=== PATIENT | male | born 1950 | race Caucasian/White ===

== ENCOUNTER 2020-06-17 21:10 | Observation (INO) | payer OTHER ==
[~2020-06-17] VITALS: Ht 180.3 cm; Wt 84.4 kg
[2020-06-17 22:39] LABS: Basophils # (auto) 0.1 10 ^3/uL (0-0.2); Basophils % (auto) 0.8 % (0.0-2.0); Eosinophils # (auto) 0.2 10 ^3/uL (0-0.8); Eosinophils % (auto) 2.7 % (0.0-7.0); Hemoglobin 15.9 g/dL (13.5-17.5); Lymphocytes # (auto) 2.6 10 ^3/uL (0.4-5.4); Lymphocytes % (auto) 35.9 % (10.0-50.0); Mean Corpuscular Hemoglobin 29.7 pg (28.0-32.0); Mean Corpuscular Hgb Conc. 33.9 g/dL (32.0-36.0); Mean Corpuscular Volume 87.8 fL (80.0-100.0); Monocytes # (auto) 0.5 10 ^3/uL (0-1.3); Monocytes % (auto) 7.2 % (0.0-12.0); Neutrophils # (auto) 3.9 10 ^3/uL (1.6-8.6); Neutrophils % (auto) 53.4 % (37.0-80.0); Nucleated Red Blood Cells % 0.1 %; Platelet Count (auto) 280 10^3/uL (140-450); Red Blood Cells 5.36 10^6/uL (4.5-5.90); Red Cell Distribution Width 15.7 % (11.8-14.3); White Blood Cell 7.4 10^3/uL (4.4-10.8)
[2020-06-17 22:58] LABS: Anion Gap 5 (5-15); Blood Urea Nitrogen 21 mg/dL (7-18); Calcium 9.1 mg/dL (8.5-10.1); Carbon Dioxide 27 mmol/L (21-32); Chloride 106 mmol/L (98-107); Glucose 91 mg/dL (74-106); Magnesium 2.6 mg/dL (1.6-2.6); Potassium 4.2 mmol/L (3.5-5.1); Sodium 138 mmol/L (136-145)
[2020-06-17 23:00] LABS: INR 0.99 (0.9-1.15)
[2020-06-17 23:17] LABS: Alanine Aminotransferase 34 U/L (16-61); Alkaline Phosphatase 98 U/L (45-117); Aspartate Aminotransferase 35 U/L (15-37); BUN/Creatinine Ratio 19.8; Bilirubin, Total 0.4 mg/dL (0.2-1.0); GFR African American 89 mL/min; GFR Non-African American 73 mL/min; Total Protein 7.9 g/dL (6.4-8.2)
[2020-06-18] MEDS ORDERED: ASPirin 325 MG TAB PO ONE
[2020-06-18] MEDS ORDERED: NITROGLYCERIN 0.4 MG SL TAB SL ONE (04:00)
[2020-06-18] MEDS ORDERED: NITROGLYCERIN 0.4 MG SL TAB SL PRN (04:15)
[2020-06-18] MEDS: SODIUM CHLORIDE 0.9% 1,000 ML IV SCH ×2 (04:15→14:15)
[2020-06-18] MEDS ORDERED: ONDANSETRON HCL 4 MG/2 ML VIAL IV PRN ×2 (04:15→14:30)
[2020-06-18] MEDS ORDERED: MORPHINE SULF INJ 2 MG/ML SYRINGE 1ML IV PRN (04:15)
[2020-06-18 04:55] LABS: Urine Bacteria NONE SEEN /hpf (None Seen); Urine Blood Negative /uL (Negative); Urine Mucus FEW (None Seen); Urine Specific Gravity 1.017 (1.001-1.035); Urine WBC 1 /hpf (0 - 3)
[2020-06-18 05:07] LABS: Calcium 8.3 mg/dL (8.5-10.1); Potassium 3.7 mmol/L (3.5-5.1)
[2020-06-18 07:38] LABS: Basophils # (auto) 0.1 10 ^3/uL (0-0.2); Basophils % (auto) 0.8 % (0.0-2.0); Eosinophils # (auto) 0.2 10 ^3/uL (0-0.8); Eosinophils % (auto) 3.2 % (0.0-7.0); Hematocrit 44.8 % (41.0-53.0); Hemoglobin 14.9 g/dL (13.5-17.5); Lymphocytes # (auto) 2.5 10 ^3/uL (0.4-5.4); Lymphocytes % (auto) 36.4 % (10.0-50.0); Mean Corpuscular Hgb Conc. 33.3 g/dL (32.0-36.0); Mean Corpuscular Volume 87.4 fL (80.0-100.0); Monocytes # (auto) 0.6 10 ^3/uL (0-1.3); Monocytes % (auto) 8.5 % (0.0-12.0); Neutrophils # (auto) 3.5 10 ^3/uL (1.6-8.6); Neutrophils % (auto) 51.1 % (37.0-80.0); Nucleated Red Blood Cells % 0.1 %; Platelet Count (auto) 246 10^3/uL (140-450); Red Blood Cells 5.12 10^6/uL (4.5-5.90); Red Cell Distribution Width 15.9 % (11.8-14.3); White Blood Cell 6.8 10^3/uL (4.4-10.8)
[2020-06-18 09:28] VITALS: BP 155/104
[2020-06-18] MEDS: FAMOTIDINE 20 MG TAB PO SCH ×2 (09:29→21:42)
[2020-06-18] MEDS: METOPROLOL TARTRATE 25 MG TAB PO SCH ×2 (09:30→21:42)
[2020-06-18] MEDS ORDERED: ENOXAPARIN SOD 40 MG/0.4 ML SYRINGE SC SCH (10:00)
[2020-06-18] MEDS: ASPirin 81 mg TAB PO SCH (10:05)
[2020-06-18] MEDS ORDERED: LIDOCAINE 2%HCL (LOCAL ANESTH.) INJ 20ML MDV ONE (12:36)
[2020-06-18] MEDS ORDERED: IODIXANOL 320MG/ML 100ML BTL IV ONE ×2 (12:36→13:32)
[2020-06-18] MEDS ORDERED: ANGIOMAX 250 MG VIAL IV ONE (13:15)
[2020-06-18] MEDS ORDERED: fentaNYL CITRATE 100 MCG/2 ML VL ONE (13:15)
[2020-06-18] MEDS ORDERED: VERAPAMIL 2.5MG/ML INJ 2ML VIAL IV ONE (13:15)
[2020-06-18] MEDS ORDERED: MIDAZOLAM HCL 1MG/1ML-2 ML VIAL ONE (13:15)
[2020-06-18] MEDS ORDERED: SODIUM CHL 0.9% 50 ML ONE (13:16)
[2020-06-18] MEDS ORDERED: diphenhdrAMINE HCL 50 MG/1 ML VL ONE (13:32)
[2020-06-18] MEDS ORDERED: TICAGRELOR 90 MG TAB ONE (13:42)
[2020-06-18] MEDS ORDERED: EPTIFIBATIDE INJ (2MG/ML) 10ML VIAL IV ONE (13:47)
[2020-06-18] MEDS ORDERED: ACETAMINOPHEN 500 MG TAB PO PRN (14:30)
[2020-06-18] MEDS: HYDROcodone-ACET 5/325MG TAB PO PRN ×2 (14:43→21:23)
[2020-06-18] MEDS ORDERED: LABETALOL HCL 5 MG/ML 4ML SYRINGE IV PRN (14:45)
[2020-06-18 17:00] VITALS: BP 117/83
[2020-06-18] MEDS: TICAGRELOR 90 MG TAB PO SCH (21:41)
[2020-06-18] MEDS: SODIUM CHLOR 0.9% PF (SALINE LOCK) 10ML VIAL/SYR IV SCH (21:41)
[2020-06-18] MEDS: ENALAPRIL MALEATE 10 MG TAB PO SCH (21:42)
[2020-06-18] MEDS ORDERED: ATORVASTATIN 20 MG TAB PO SCH (22:00)
[2020-06-18 22:39] VITALS: BP 150/98
[2020-06-19] MEDS ORDERED: HYDROcodone-ACET 10/325MG TAB PO PRN (00:15)
[2020-06-19] MEDS: SODIUM CHLORIDE 0.9% 1,000 ML IV SCH ×2 (00:15→09:20)
[2020-06-19 05:15] VITALS: BP 149/68
[2020-06-19] MEDS: SODIUM CHLOR 0.9% PF (SALINE LOCK) 10ML VIAL/SYR IV SCH (05:18)
[2020-06-19 08:00] VITALS: BP 150/74
[2020-06-19 08:37] VITALS: BP 150/79
[2020-06-19] MEDS: TICAGRELOR 90 MG TAB PO SCH (09:18)
[2020-06-19] MEDS: ASPirin 81 mg TAB PO SCH (09:18)
[2020-06-19] MEDS: FAMOTIDINE 20 MG TAB PO SCH (09:19)
[2020-06-19] MEDS: METOPROLOL TARTRATE 25 MG TAB PO SCH (09:19)
[2020-06-19] MEDS: ENALAPRIL MALEATE 10 MG TAB PO SCH (09:20)
[2020-06-19 10:26] VITALS: BP 150/74
[2020-06-19 12:37] VITALS: BP 156/89
== END 2020-06-19 15:00 | disposition home or self-care (01) ==
LOC: ER 21:13 → TELE 06-18 04:01 → INTOOBSV 06-18 04:01 → TELE-WESTW 06-18 08:48
PROVIDERS: ADMIT Hospitalist; ATTEND Hospitalist
DX: I24.9 Acute ischemic heart disease, unspecified (principal); Z20.822 Contact with and (suspected) exposure to COVID-19; I25.10 Atherosclerotic heart disease of native coronary artery without angina pectoris; I10 Essential (primary) hypertension; K21.9 Gastro-esophageal reflux disease without esophagitis; Z95.5 Presence of coronary angioplasty implant and graft; Z79.899 Other long term (current) drug therapy; Z91.013 Allergy to seafood
CPT/HCPCS: 36415; 71045; 80048; 80053; 80061; 81001; 83735; 83880; 84484; 85025; 85610; 87426; 93005; 93306; 93454; 96360; 96361; 96372; 99285; C1726; C1769; C1874; C1887; C1894; C9600; G0378; J0583; J1327; J1644; J1650; J2250; J3010; J7030; Q9967; 99152; 99153

== ENCOUNTER 2022-04-22 18:13 | Emergency (ER) | payer OTHER ==
[~2022-04-22] VITALS: Ht 180.3 cm; Wt 86.0 kg
[2022-04-22 19:45] VITALS: BP 109/70
[2022-04-22] MEDS ORDERED: HYDR-4902 PO (20:14)
[2022-04-22] MEDS ORDERED: ONDA-144 PO (20:14)
== END 2022-04-22 20:47 | disposition home or self-care (01) ==
LOC: ER 18:13
DX: S82.832A Other fracture of upper and lower end of left fibula, initial encounter for closed fracture (principal); S92.352A Displaced fracture of fifth metatarsal bone, left foot, initial encounter for closed fracture; I10 Essential (primary) hypertension; I25.10 Atherosclerotic heart disease of native coronary artery without angina pectoris; E78.5 Hyperlipidemia, unspecified; Z95.1 Presence of aortocoronary bypass graft; Z79.899 Other long term (current) drug therapy; Z88.2 Allergy status to sulfonamides; Z91.013 Allergy to seafood; X50.1XXA Overexertion from prolonged static or awkward postures, initial encounter; Y93.89 Activity, other specified; Y92.89 Other specified places as the place of occurrence of the external cause; Y99.8 Other external cause status
CPT/HCPCS: 29515; 73610

== ENCOUNTER 2022-08-25 22:40 | Emergency (ER) | payer BC, OTHER ==
[~2022-08-25] VITALS: Ht 180.3 cm; Wt 72.7 kg
[~2022-08-25 22:40] MED LIST: HYDR-4902 PO; ONDA-144 PO
[2022-08-25 23:26] LABS: Basophils # (auto) 0.1 10 ^3/uL (0-0.2); Basophils % (auto) 1.3 % (0.0-2.0); Eosinophils # (auto) 0.3 10 ^3/uL (0-0.8); Eosinophils % (auto) 5.1 % (0.0-7.0); Hematocrit 37.6 % (41.0-53.0); Hemoglobin 12.4 g/dL (13.5-17.5); Lymphocytes # (auto) 1.3 10 ^3/uL (0.4-5.4); Lymphocytes % (auto) 25.3 % (10.0-50.0); Mean Corpuscular Hemoglobin 29.4 pg (28.0-32.0); Mean Corpuscular Hgb Conc. 32.9 g/dL (32.0-36.0); Mean Corpuscular Volume 89.4 fL (80.0-100.0); Monocytes # (auto) 0.5 10 ^3/uL (0-1.3); Monocytes % (auto) 9.8 % (0.0-12.0); Neutrophils % (auto) 58.5 % (37.0-80.0); Red Cell Distribution Width 15.7 % (11.8-14.3); White Blood Cell 5.1 10^3/uL (4.4-10.8)
[2022-08-25 23:44] LABS: Albumin 3.5 g/dL (3.4-5.0); Potassium 3.8 mmol/L (3.5-5.1)
[2022-08-25 23:46] LABS: BUN/Creatinine Ratio 19.4 (10.0-20.0)
[2022-08-25 23:49] LABS: Bilirubin, Total 0.4 mg/dL (0.2-1.0)
[2022-08-26 01:55] LABS: Urine Bacteria NONE SEEN /hpf (None Seen); Urine Blood 3+ /uL (Negative); Urine Mucus FEW (None Seen); Urine Specific Gravity 1.024 (1.001-1.035); Urine WBC 3 /hpf (0 - 3)
[2022-08-26] MEDS ORDERED: ONDANSETRON HCL 4 MG/2 ML VIAL IV PRN (05:30)
[2022-08-26] MEDS: SODIUM CHLORIDE 0.9% 2,000 ML IV ONE ×2 (05:45→06:40)
[2022-08-26] MEDS ORDERED: ALPRAZolam 0.25 MG TAB PO ONE (06:15)
[2022-08-26] MEDS ORDERED: CLOPIDOGREL BISULFATE 75 MG TAB PO SCH (10:00)
[2022-08-26] MEDS ORDERED: ASPirin-EC 81 mg tab PO SCH (10:00)
[2022-08-26 12:00] VITALS: BP 126/73
== END 2022-08-26 12:06 | disposition home or self-care (01) ==
LOC: EDBD 22:40 → ER 22:42
DX: R55 Syncope and collapse (principal); G91.0 Communicating hydrocephalus; I10 Essential (primary) hypertension; E78.5 Hyperlipidemia, unspecified; Z88.2 Allergy status to sulfonamides; Z91.013 Allergy to seafood; Z86.73 Personal history of transient ischemic attack (TIA), and cerebral infarction without residual deficits
CPT/HCPCS: 36415; 70450; 71045; 71250; 72125; 74176; 80053; 81001; 84484; 85025; 93005; 96360; 99291; J7030

== ENCOUNTER 2022-12-06 21:45 | Emergency (ER) | payer BC ==
[~2022-12-06] VITALS: Ht 180.3 cm; Wt 75.0 kg
[2022-12-06 23:11] VITALS: BP 143/86; PULSE 78; RESP 15; TEMP 98; O2SAT 98
[2022-12-06] MEDS ORDERED: LACTATED RINGER'S 1,000 ML IV ONE (23:30)
[2022-12-07 00:08] LABS: Basophils # (auto) 0.1 10 ^3/uL (0-0.2); Basophils % (auto) 0.8 % (0.0-2.0); Eosinophils # (auto) 0.3 10 ^3/uL (0-0.8); Eosinophils % (auto) 4.1 % (0.0-7.0); Hematocrit 38.7 % (41.0-53.0); Hemoglobin 12.9 g/dL (13.5-17.5); Lymphocytes # (auto) 1.2 10 ^3/uL (0.4-5.4); Lymphocytes % (auto) 17.7 % (10.0-50.0); Mean Corpuscular Hemoglobin 29.8 pg (28.0-32.0); Mean Corpuscular Hgb Conc. 33.2 g/dL (32.0-36.0); Mean Corpuscular Volume 89.6 fL (80.0-100.0); Monocytes # (auto) 0.5 10 ^3/uL (0-1.3); Monocytes % (auto) 7.1 % (0.0-12.0); Neutrophils # (auto) 4.7 10 ^3/uL (1.6-8.6); Neutrophils % (auto) 70.3 % (37.0-80.0); Red Blood Cells 4.32 10^6/uL (4.5-5.90); Red Cell Distribution Width 14.5 % (11.8-14.3); White Blood Cell 6.7 10^3/uL (4.4-10.8)
[2022-12-07 00:20] LABS: Alanine Aminotransferase 26 U/L (7-40); Albumin 3.9 g/dL (3.2-4.8); Alkaline Phosphatase 119 U/L (46-116); Anion Gap 5 (5-15); Aspartate Aminotransferase 32 U/L (13-40); BUN/Creatinine Ratio 21.4 (10.0-20.0); Blood Alcohol < 3.0 mg/dL (<10); Blood Urea Nitrogen 24 mg/dL (9-23); Calcium 8.9 mg/dL (8.7-10.4); Carbon Dioxide 26 mmol/L (20-30); Chloride 105 mmol/L (98-107); Glucose 92 mg/dL (74-106); Lipase 42 U/L (12-53); Magnesium 2.2 mg/dL (1.6-2.6); Potassium 4.1 mmol/L (3.5-5.1); Sodium 136 mmol/L (136-145)
[2022-12-07 00:21] LABS: Bilirubin, Total 0.4 mg/dL (0.2-1.0); Total Protein 6.6 g/dL (5.7-8.2)
[2022-12-07 00:23] LABS: INR 1.05 (0.9-1.15); Partial Thromboplastin Time 27.5 SEC (24.5-34.5)
[2022-12-07 00:40] LABS: CRP High Sensitivity 0.08 mg/dL (<1.0)
[2022-12-07 00:59] LABS: Erythrocyte Sedimentation Rate 5 mm/hr (0-20)
== END 2022-12-07 00:57 | disposition left against medical advice (07) ==
LOC: EDBD 21:45 → EDUNIT# 21:45 → ER 21:48
DX: R56.9 Unspecified convulsions (principal); E86.0 Dehydration; E78.5 Hyperlipidemia, unspecified; I10 Essential (primary) hypertension; Z88.2 Allergy status to sulfonamides; Z91.013 Allergy to seafood; Z79.899 Other long term (current) drug therapy; Z79.01 Long term (current) use of anticoagulants; Z74.09 Other reduced mobility
CPT/HCPCS: 36415; 70450; 71045; 80053; 80320; 82010; 82140; 83605; 83690; 83735; 83880; 83930; 84443; 84484; 85025; 85610; 85652; 85730; 86141; 93005; 99285; J7120

== ENCOUNTER 2023-12-31 23:47 | Inpatient (IN) | payer BC ==
[~2023-12-31] VITALS: Ht 180.3 cm; Wt 82.1 kg
[2024-01-01] VITALS (20 sets, daily range): BP systolic 100–125; BP diastolic 52–77; PULSE 67–90; RESP 12–18; TEMP 97.3–98.7; O2SAT 88–100
--- NOTE | 2024-01-01 00:24 | ED.PDOC ---
HPI Comments 73-year-old male who came to ER via EMS for chest pains. Patient does have history of hypertension, GERD, coronary artery disease, status post cardiac stents. States for the past 2 days she has been experiencing left-sided chest pains, burning, entire left arm, associated with shortness of breath. States chest pain as 2/10 intensity. Noted worsening of chest pains today prompted patient to come to the ER. Patient states his pains is similar to GERD. Chief Complaint: Chest Pain Time Seen by MD: 00:23 Reviewed Notes: Nurses Notes Allergies: Coded Allergies: Fish Allergy (Verified Allergy, Mild, 06/17/20) Sulfa Antibiotics (Verified Allergy, Unknown, 06/18/20) Home Meds Active Scripts Ondansetron (Zofran) 4 Mg Tab, 1 TAB PO Q6HR PRN, #10 TAB 0 Refills Prov:AUDREY LEE 04/22/22 Hydrocodone-Acetaminophen (Hydrocodone Bitartrate/AC 5-325 mg) 1 Tab Tab, 1 TAB PO Q4HPRN PRN, #10 TAB 0 Refills Prov:AUDREY LEE 04/22/22 Information Source: Patient Mode of Arrival: EMS Severity: Moderate Timing: Days Duration: Intermittent Prehospital treatment: None Location: Chest (L) Radiation: Arm (L) Quality: Sharp, Burning Onset: With Light Exertion Cardiac Risk Factors: HTN, Other (GERD) PE Risk Factors: None History of: Similar pain in past Modifying Factors: Nothing Associated Signs and Symptoms: SOB Past Medical History PAST MEDICAL HISTORY: CAD, GERD, High Lipids, HTN Surgical History: PTCA Family History Family History: Reviewed,noncontributory to illness Social History Smoker: Non-Smoker Alcohol: Denies ETOH Use Drugs: Denies Drug Use Lives In: Home Constitutional: denies: chills, diaphoresis, fatigue, fever, malaise, sweats, weakness, others EENTM: denies: blurred vision, double vision, ear bleeding, ear discharge, ear drainage, ear pain, ear ringing, eye pain, eye redness, hearing loss, mouth pain, mouth swelling, nasal discharge, nose bleeding, nose congestion, nose pain, photophobia, tearing, throat pain, throat swelling, voice changes, others Respiratory: reports: SOB at rest, shortness of breath; denies: cough, hemoptysis, orthopnea, SOB with excertion, stridor, wheezing, others Cardiovascular: reports: chest pain, left arm pain; denies: dizzy spells, diaphoresis, Dyspnea on exertion, edema, irregular heart beat, lightheadedness, palpitations, PND, syncope, others Gastrointestinal: reports: abdominal pain; denies: abdomen distended, blood streaked bowels, constipated, diarrhea, dysphagia, difficulty swallowing, hematemesis, melena, nausea, poor appetite, poor fluid intake, rectal bleeding, rectal pain, vomiting, others Genitourinary: denies: burning, dysuria, flank pain, frequency, hematuria, incontinence, penile discharge, penile sore, pain, testicle pain, testicle swelling, urgency, others Neurological: denies: dizziness, fainting, headache, left sided numbness, left sided weakness, numbness, paresthesia, pre-existing deficit, right sided numbness, right sided weakness, seizure, speech problems, tingling, tremors, weakness, others Musculoskeletal: denies: back pain, gout, joint pain, joint swelling, muscle pain, muscle stiffness, neck pain, others Integumetry: denies: bruises, change in color, change in hair/nails, dryness, laceration, lesions, lumps, rash, wounds, others Allergic/Immunocompromised: denies: Difficulty Healing, Frequent Infections, Hives, Itching, others Hematologic/Lymphatic: denies: anemia, blood clots, easy bleeding, easy bruising, swollen glands, others Endocrine: denies: excessive hunger, excessive sweating, excessive thirst, excessive urination, flushing, intolerance to cold, intolerance to heat, unexplained weight gain, unexplained weight loss, others Psychiatric: denies: anxiety, bipolar disorder, depression, hopeless, panic disorder, schizophrenia, sleepless, suicidal, others Physical Exam General Appearance: No Apparent Distress, Normal HEENT: Normal ENT Inspection, Pharynx Normal, TMs Normal Neck: Full Range of Motion, Non-Tender, Normal, Normal Inspection Respiratory: Chest Non-Tender, Lungs Clear, No Accessory Muscle Use, No Respiratory Distress, Normal Breath Sounds Cardiovascular: No Edema, No JVD, No Murmur, No Gallop, Normal Peripheral Pulses, Regular Rate/Rhythm Breast Exam: Deferred Gastrointestinal: No Organomegaly, Non Tender, No Pulsatile Mass, Normal Bowel Sounds, Soft Genitalia: Deferred Pelvic: Deferred Rectal: Deferred Extremities: No calf tenderness, Normal capillary refill, Normal inspection, Normal range of motion, Non-tender, No pedal edema Musculoskeletal : Apperance: Normal Neurologic: Alert, cloak room attendant II-XII nml as Tested, No Motor Deficits, Normal Affect, Normal Mood, No Sensory Deficits Cerebellar Function: Normal Reflexes: Normal Skin: Dry, Normal Color, Warm Lymphatic: No Adenopathy Was a procedure done? Was a procedure done?: No CP Differential Dx Differential Diagnosis: Angina, Anxiety / Panic Attack, Hyperventilation Differential Diagnosis: Angina, Chest Wall Pain, Costochondritis, Esophageal reflux/spasm, Gastritis, Myocardial Infarction, Pneumonia X-Ray, Labs, Meds, VS Vital Signs Date Time Temp Pulse Resp B/P (MAP) Pulse Ox O2 Delivery O2 Flow Rate FiO2 01/01/24 01:15 98.9 90 17 88/69 (75) 100 98.9 01/01/24 00:56 93 01/01/24 00:39 98.6 88 16 126/81 (96) 100 12/31/23 23:54 88 Lab Test 01/01/24 01:33 01/01/24 00:01 Range/Units Troponin I High Sensitivity 2131 *H 2121 *H </=54 ng/L White Blood Count 9.7 4.4-10.8 10^3/uL Red Blood Count 1.48 L 4.5-5.90 10^6/uL Hemoglobin 4.6 *L 13.5-17.5 g/dL Hematocrit 13.8 L 41.0-53.0 % Mean Corpuscular Volume 93.0 80.0-100.0 fL Mean Corpuscular Hemoglobin 31.3 28.0-32.0 pg Mean Corpuscular Hemoglobin Concent 33.7 32.0-36.0 g/dL Red Cell Distribution Width 17.7 H 11.8-14.3 % Platelet Count 321 140-450 10^3/uL Mean Platelet Volume 7.1 6.9-10.8 fL Neutrophils (%) (Auto) 71.3 37.0-80.0 % Lymphocytes (%) (Auto) 18.1 10.0-50.0 % Monocytes (%) (Auto) 9.8 0.0-12.0 % Eosinophils (%) (Auto) 0.5 0.0-7.0 % Basophils (%) (Auto) 0.3 0.0-2.0 % Neutrophils # (Auto) 6.9 1.6-8.6 10 ^3/uL Lymphocytes # (Auto) 1.8 0.4-5.4 10 ^3/uL Monocytes # (Auto) 1.0 0-1.3 10 ^3/uL Eosinophils # (Auto) 0 0-0.8 10 ^3/uL Basophils # (Auto) 0 0-0.2 10 ^3/uL Nucleated Red Blood Cells 0.5 % Platelet Estimate [place] Large Platelets Few Ovalocytes Few Stomatocytes Few Sodium Level 141 136-145 mmol/L Potassium Level 3.3 L 3.5-5.1 mmol/L Chloride Level 111 H 98-107 mmol/L Carbon Dioxide Level 20 20-31 mmol/L Anion Gap 10 5-15 Blood Urea Nitrogen 64 H 9-23 mg/dL Creatinine 2.76 H 0.700-1.30 mg/dL Glomerular Filtration Rate Calc 23 >90 mL/min BUN/Creatinine Ratio 23.2 H 10.0-20.0 Serum Glucose 107 H 74-106 mg/dL Calcium Level 8.3 L 8.7-10.4 mg/dL Time of 1ST Reevaluation: 00:19 Reevaluation 1ST: Unchanged Patient Education/Counseling: Diagnosis, Treatment Family Education/Counseling: No Family Present Departure 1 Departure Time of Disposition: 02:32 (Patient presented with chest pain that was concerning for possible STEMI, ACS, PE, Pneumonia, Muscle Strain, COPD, Di ssection. Data: 1. I ordered and reviewed the result of at least 3 labs including a CBC, BMP, and Troponin. 2. I independently interpreted the following tests: EKG which shows sinus arrhythmia and Chest X-ray which shows benign chest.Risk:This patient has a high risk of morbidity due to further diagnostic testing or treatment and may suffer from an acute cardiac or respiratory diso rder. Workup reveals NSTEMI and symptomatic anemia possible ulceration and patient should be admitted for further workup and possible expert consultation. ) Impression: Primary Impression: Symptomatic anemia Additional Impressions: Acute chest pain NSTEMI (non-ST elevated myocardial infarction) Disposition: 09 ADMITTED INPATIENT Admit to: [facility] Condition: Guarded Critical Care Note Critical Care Time?: Yes (35 min-critical care time only) Critical care comment: Acute chest pain Authorized and Performed by: Shannon Clemons MD Total critical care time: Approximately 42 minutes Due to a high probability of clinically significant, life threatening deterioration, the patient required my highest level of preparedness to intervene emergently and I personally spent this critical care time directly and personally managing the patient. This critical care time included obtaining a history; examining the patient; pulse oximetry; ordering and review of studies; arranging urgent treatment with development of a management plan; evaluation of patient's response to treatment; frequent reassessment; and, discussions with other providers. This critical care time was performed to assess and manage the high probability of imminent, life-threatening deterioration that could result in multi-organ failure. It was exclusive of separately billable procedures and treating other patients and teaching time. Please see my other sections and the rest of the note for further information on patient assessment and treatment. Stability Stability form required: No Heart Score Heart Score: Heart Score Response (Comments) Value History Slightly Suspicious 0 EKG Normal 0 Age >65 2 Risk Factors 1 or 2 risk factors 1 Troponin Normal limit 0 Total 3 I personally scribed for SHANNON CLEMONS MD ([email or web address]) on 01/01/24 at 00:24. Electronically submitted by Kareem Pendleton ([email or web address]). SHANNON CLEMONS MD Jan 01, 2024 00:24
[2024-01-01 00:37] LABS: Chloride 111 mmol/L (98-107); Potassium 3.3 mmol/L (3.5-5.1); Sodium 141 mmol/L (136-145)
[2024-01-01 00:38] LABS: Anion Gap 10 (5-15); Calcium 8.3 mg/dL (8.7-10.4); Carbon Dioxide 20 mmol/L (20-31)
[2024-01-01 00:39] LABS: Basophils # (auto) 0 10 ^3/uL (0-0.2); Eosinophils # (auto) 0 10 ^3/uL (0-0.8); Eosinophils % (auto) 0.5 % (0.0-7.0); Lymphocytes # (auto) 1.8 10 ^3/uL (0.4-5.4); Lymphocytes % (auto) 18.1 % (10.0-50.0)
[2024-01-01 00:41] LABS: Basophils % (auto) 0.3 % (0.0-2.0); Hematocrit 13.8 % (41.0-53.0); Mean Corpuscular Hemoglobin 31.3 pg (28.0-32.0); Mean Corpuscular Hgb Conc. 33.7 g/dL (32.0-36.0); Monocytes % (auto) 9.8 % (0.0-12.0); Neutrophils # (auto) 6.9 10 ^3/uL (1.6-8.6); Neutrophils % (auto) 71.3 % (37.0-80.0); Nucleated Red Blood Cells % 0.5 %; Platelet Count (auto) 321 10^3/uL (140-450); Red Blood Cells 1.48 10^6/uL (4.5-5.90); Red Cell Distribution Width 17.7 % (11.8-14.3); White Blood Cell 9.7 10^3/uL (4.4-10.8)
[2024-01-01 00:43] LABS: BUN/Creatinine Ratio 23.2 (10.0-20.0); Blood Urea Nitrogen 64 mg/dL (9-23); Glucose 107 mg/dL (74-106)
[2024-01-01] MEDS: PANTOPRAZOLE 40 MG/10 ML VIAL INJ IV ONE (01:00)
--- NOTE | 2024-01-01 01:18 | ECG ---
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
[2024-01-01 01:19] LABS: Large Platelets FEW; Ovalocytes FEW; Platelet Estimate Adequa; Stomatocytes Few
[2024-01-01 01:44] LABS: Hemoglobin 4.6 g/dL (13.5-17.5)
--- NOTE | 2024-01-01 02:13 | DVH ---
Examination: CXR2 Clinical Indication: chest pain Comparison: None. Technique: (PA AND LATERAL VIEW) Findings: Both the lung mckoy appear clear. Both the costo-phrenic and cardio-phrenic angles are normal. Trachea and mediastinum are in the midline. Cardiac size is within normal limits. There is no evidence of pleural effusion or pneumothorax. Bony thoracic cage appears normal. Post-operative changes are noted in the cervical spine. Impression: No abnormality is detected on this study. Electronically Signed 01/01/2024 02:05 Rick Cantu
[2024-01-01 04:25] LABS: Urine Bacteria None Seen /hpf (None Seen)
[2024-01-01] MEDS ORDERED: NITROGLYCERIN 0.4 MG SL TAB SL PRN (04:30)
[2024-01-01] MEDS ORDERED: ONDANSETRON HCL 4 MG/2 ML VIAL IV PRN (04:30)
[2024-01-01] MEDS: SODIUM CHLORIDE 0.9% 1,000 ML IV SCH (04:30)
[2024-01-01] MEDS ORDERED: MORPHINE SULFATE INJ 2 MG/ml SYRG IV PRN (04:30)
[2024-01-01 04:33] LABS: Urine Blood Negative /uL (Negative); Urine Clarity Clear (Clear); Urine Color Light-Yellow (Yellow); Urine Protein, UAD Negative (Negative); Urine Specific Gravity 1.012 (1.001-1.035); Urine Urobilinogen Normal (Negative); Urine WBC 1 /hpf (0 - 3)
[2024-01-01 04:43] LABS: INR 1.03 (0.9-1.15); Prothrombin Time 10.9 sec (9.3-11.8)
[2024-01-01] MEDS: POTASSIUM CHL 20MEQ/100ML 100 ML IV SCH ×2 (04:45→17:30)
[2024-01-01 05:04] LABS: Basophils # (auto) 0.1 10 ^3/uL (0-0.2); Basophils % (auto) 0.5 % (0.0-2.0); Eosinophils # (auto) 0.1 10 ^3/uL (0-0.8); Eosinophils % (auto) 0.4 % (0.0-7.0); Hematocrit 14.4 % (41.0-53.0); Lymphocytes # (auto) 4.4 10 ^3/uL (0.4-5.4); Lymphocytes % (auto) 31.6 % (10.0-50.0); Mean Corpuscular Hemoglobin 29.9 pg (28.0-32.0); Mean Corpuscular Volume 99.8 fL (80.0-100.0); Monocytes % (auto) 7.2 % (0.0-12.0); Neutrophils # (auto) 8.4 10 ^3/uL (1.6-8.6); Neutrophils % (auto) 60.3 % (37.0-80.0); Nucleated Red Blood Cells % 0.4 %; Platelet Count (auto) 334 10^3/uL (140-450); Red Blood Cells 1.44 10^6/uL (4.5-5.90); Red Cell Distribution Width 18.7 % (11.8-14.3); White Blood Cell 13.9 10^3/uL (4.4-10.8)
[2024-01-01 05:10] LABS: Hemoglobin 4.3 g/dL (13.5-17.5)
[2024-01-01 05:17] LABS: % Iron Saturation 6.7 % (20-55)
[2024-01-01 05:18] LABS: Albumin 3.6 g/dL (3.2-4.8); Bilirubin, Total 0.3 mg/dL (0.2-1.0); Total Protein 5.4 g/dL (5.7-8.2)
[2024-01-01 05:34] LABS: Bilirubin, Direct 0.1 mg/dL (<0.3)
[2024-01-01 05:43] LABS: Large Platelets FEW; Platelet Estimate Adequa
--- NOTE | 2024-01-01 05:46 | DVHHP2 ---
Admitting Diagnosis: cp History of Present Illness HPI 73 M who comes to ER for chest pains over the last few days. He states he has a hx of CAD with 4 cardiac stents in the past and he takes brilinta at home. On arrival to ER his hgb was noted to be 4.6 and troponin was >2k. He was ordered PRBC transfusion and started on protonix gtt for GI bleed. He will be admitted to tele floor with GI and cardiology consults. Currently he denies and CP, SOB, n/v, or abd pain. Home Meds Active Scripts Ondansetron (Zofran) 4 Mg Tab, 1 TAB PO Q6HR PRN, #10 TAB 0 Refills Prov:ADUREY LEE 04/22/22 Hydrocodone-Acetaminophen (Hydrocodone Bitartrate/AC 5-325 mg) 1 Tab Tab, 1 TAB PO Q4HPRN PRN, #10 TAB 0 Refills Prov:AUDREY LEE 04/22/22 Past Medical History Cardiac: CAD, HTN Pulmonary: No pertinent Hx Central Nervous System: No pertinent Hx GI: GERD Hemotology/Oncology: No pertinent Hx Hepatobiliary: No pertinent Hx Psychiatric: No pertinent Hx Musculoskeletal: No pertinent Hx Infectious Disease: No peritnent Hx Renal/: No pertinent Hx Patient Family History: Alcoholism FH: CHF (congestive heart failure) G8 FATHER FH: ovarian cancer G8 MOTHER FH: pancreatic cancer G8 BROTHER Review of Systems Cardiovascular: Chest Pain Gastrointestinal: Abdominal Pain H&P Exam Vital Signs Vital Signs Date Time Temp Pulse Resp B/P (MAP) Pulse Ox O2 Delivery O2 Flow Rate FiO2 01/01/24 05:26 98.7 81 16 119/52 (74) 100 98.7 01/01/24 02:50 Nasal Cannula* 2 28 General Appeara: Well developed Neck Exam: Normal inspection Pulmonary/Respiratory: Normal inspection Cardiovascular/Chest: Regular rate Labs/Xrays Labs Test 01/01/24 04:39 01/01/24 04:34 01/01/24 02:48 01/01/24 02:47 Range/Units White Blood Count 13.9 #H 4.4-10.8 10^3/uL Red Blood Count 1.44 L 4.5-5.90 10^6/uL Hemoglobin 4.3 *L 13.5-17.5 g/dL Hematocrit 14.4 L 41.0-53.0 % Mean Corpuscular Volume 99.8 # 80.0-100.0 fL Mean Corpuscular Hemoglobin 29.9 28.0-32.0 pg Mean Corpuscular Hemoglobin Concent 30.0 L 32.0-36.0 g/dL Red Cell Distribution Width 18.7 H 11.8-14.3 % Platelet Count 334 140-450 10^3/uL Mean Platelet Volume 7.4 6.9-10.8 fL Neutrophils (%) (Auto) 60.3 37.0-80.0 % Lymphocytes (%) (Auto) 31.6 10.0-50.0 % Monocytes (%) (Auto) 7.2 0.0-12.0 % Eosinophils (%) (Auto) 0.4 0.0-7.0 % Basophils (%) (Auto) 0.5 0.0-2.0 % Neutrophils # (Auto) 8.4 1.6-8.6 10 ^3/uL Lymphocytes # (Auto) 4.4 0.4-5.4 10 ^3/uL Monocytes # (Auto) 1.0 0-1.3 10 ^3/uL Eosinophils # (Auto) 0.1 0-0.8 10 ^3/uL Basophils # (Auto) 0.1 0-0.2 10 ^3/uL Nucleated Red Blood Cells 0.4 % Reticulocyte Count (auto) 13.27 H 0.5-1.5 % Iron Level 21 L 65-175 ug/dL Total Iron Binding Capacity 315 250-425 ug/dL Percent Iron Saturation 6.7 L 20-55 % Total Bilirubin 0.3 0.2-1.0 mg/dL Aspartate Amino Transferase (AST) 29 13-40 U/L Alanine Aminotransferase (ALT) 18 7-40 U/L Alkaline Phosphatase 79 46-116 U/L Lactate Dehydrogenase 224 120-246 U/L Total Protein 5.4 L 5.7-8.2 g/dL Albumin 3.6 3.2-4.8 g/dL Lactic Acid Level 8.0 *H 0.4-2.0 mmol/L Urine Color Light-yellow Yellow Urine Clarity Clear Clear Urine pH 5.0 5.0-9.0 Urine Specific [place] 1.012 1.001-1.035 Urine Protein Negative Negative Urine Ketones Negative Negative Urine Blood Negative Negative /uL Urine Nitrite Negative Negative Urine Bilirubin Negative Negative Urine Urobilinogen Normal Negative mg/dL Urine Leukocyte Esterase Negative Negative /uL Urine RBC 1 0 - 3 /hpf Urine WBC 1 0 - 3 /hpf Urine Squamous Epithelial Cells None seen <5 /hpf Urine Bacteria None seen None Seen /hpf Urine Glucose Normal Normal mg/dL Prothrombin Time 10.9 9.3-11.8 sec Prothrombin Time INR 1.03 0.9-1.15 Troponin I High Sensitivity 2151 *H </=54 ng/L Test 01/01/24 00:01 Range/Units Large Platelets Few Ovalocytes Few Stomatocytes Few Sodium Level 141 136-145 mmol/L Potassium Level 3.3 L 3.5-5.1 mmol/L Chloride Level 111 H 98-107 mmol/L Carbon Dioxide Level 20 20-31 mmol/L Anion Gap 10 5-15 Blood Urea Nitrogen 64 H 9-23 mg/dL Creatinine 2.76 H 0.700-1.30 mg/dL Glomerular Filtration Rate Calc 23 >90 mL/min BUN/Creatinine Ratio 23.2 H 10.0-20.0 Serum Glucose 107 H 74-106 mg/dL Calcium Level 8.3 L 8.7-10.4 mg/dL Assessment/Plan Primary Diagnosis 1) GI bleed 2) Acute blood loss anemia 3) JEOVANNY 4) Elevated troponin, likely demand in the setting of anemia 5) CAD s/p PCI x4 in the past 6) HTN 7) Lactic acidemia plab; admit to tele, NPO, protonix gtt, IVF hydration, hold anticoagulants, transfuse to keep hgb >7, hemolytic work up ordered, GI consult to see, echo and cardiology to evaluate for elevated trops, SCDs, trend Hgb, daily labs, guarded Plan discussed with: Other (n) KAYLA FORTE MD Jan 01, 2024 05:46
[2024-01-01] MEDS: PANTOPRAZOLE 40mg/50ML NS AE 50 ML IV ONE (07:00)
--- NOTE | 2024-01-01 08:45 | ECG ---
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
[2024-01-01] MEDS: PANTOPRAZOLE 40mg/50ML NS AE 50 ML IV SCH (14:07)
--- NOTE | 2024-01-01 16:39 | DVHINCON2 ---
Date of service: Jan 01, [address] Garrett Reason for Consultation Severe anemia History of Present Illness 73 M who comes to ER for chest pains over the last few days. He states he has a hx of CAD with 4 cardiac stents in the past recorded in our hospital [place] [address] David Luz and he takes brilinta at home. On arrival to ER his hgb was noted to be 4.6 and troponin was >2k. He was ordered PRBC transfusion and started on protonix gtt for GI bleed. He was admitted to tele floor with GI and cardiology consults. Currently he denies and CP, SOB, n/v, or abd pain. Patient denies any nausea vomiting no hematemesis no bright red blood per rectum or melena. His last colonoscopy and endoscopy were about eight years ago which he reports as being negative. Patient has received 2 units PRBC and 3rd unit is transfusing. Past Medical History CAD, GERD, High Lipids, HTN Past Surgical History PTCA Family History: Alcoholism FH: CHF (congestive heart failure) G8 FATHER FH: ovarian cancer G8 MOTHER FH: pancreatic cancer G8 BROTHER Allergies: Coded Allergies: Fish Allergy (Verified Allergy, Mild, 06/17/20) Sulfa Antibiotics (Verified Allergy, Unknown, 06/18/20) Home Meds No Active Prescriptions or Reported Meds Current Medications Current Medications Medications (Trade) Dose Ordered Sig/[place] Route PRN Reason Start Time Stop Time Status Last Admin Ondansetron HCl (Zofran) 4 mg Q4HPRN PRN IV NAUSEA / VOMITING 01/01/24 04:30 Morphine Sulfate 2 mg Q3HPRN PRN IV SEVERE PAIN (7-10 PAIN SCALE) 01/01/24 04:30 Sodium Chloride 1,000 ml @ 100 mls/hr Q10H IV 01/01/24 04:30 01/01/24 14:47 Nitroglycerin (Ntrostat Sublingual) 0.4 mg Q5MINP PRN SL FOR CHEST PAIN 01/01/24 04:30 Potassium Chloride 100 ml @ 50 mls/hr Q2H IV 01/01/24 04:45 01/01/24 08:44 DC Pantoprazole Sodium 50 ml @ 10 mls/hr Q5H IV 01/01/24 09:15 01/01/24 14:07 Vital Signs Vital Signs Date Time Temp Pulse Resp B/P (MAP) Pulse Ox O2 Delivery O2 Flow Rate FiO2 01/01/24 14:55 97.9 78 18 123/71 97.9 01/01/24 11:56 92 01/01/24 09:30 Nasal Cannula* 3 32 Physical Exam General Appeara: Well developed, thin male no acute distress Neck Exam: Normal inspection, mild pallor Pulmonary/Respiratory: Normal inspection Cardiovascular/Chest: Regular rate Abdomen is soft nontender nondistended Extremities show no clubbing cyanosis or edema Neuro he is alert arrange x3 with no focal deficit Labs/Diagnostic Data Labs Test 01/01/24 06:39 01/01/24 04:39 01/01/24 02:48 01/01/24 02:47 Range/Units Lactic Acid Level 1.5 0.4-2.0 mmol/L White Blood Count 13.9 #H 4.4-10.8 10^3/uL Red Blood Count 1.44 L 4.5-5.90 10^6/uL Hemoglobin 4.3 *L 13.5-17.5 g/dL Hematocrit 14.4 L 41.0-53.0 % Mean Corpuscular Volume 99.8 # 80.0-100.0 fL Mean Corpuscular Hemoglobin 29.9 28.0-32.0 pg Mean Corpuscular Hemoglobin Concent 30.0 L 32.0-36.0 g/dL Red Cell Distribution Width 18.7 H 11.8-14.3 % Platelet Count 334 140-450 10^3/uL Mean Platelet Volume 7.4 6.9-10.8 fL Neutrophils (%) (Auto) 60.3 37.0-80.0 % Lymphocytes (%) (Auto) 31.6 10.0-50.0 % Monocytes (%) (Auto) 7.2 0.0-12.0 % Eosinophils (%) (Auto) 0.4 0.0-7.0 % Basophils (%) (Auto) 0.5 0.0-2.0 % Neutrophils # (Auto) 8.4 1.6-8.6 10 ^3/uL Lymphocytes # (Auto) 4.4 0.4-5.4 10 ^3/uL Monocytes # (Auto) 1.0 0-1.3 10 ^3/uL Eosinophils # (Auto) 0.1 0-0.8 10 ^3/uL Basophils # (Auto) 0.1 0-0.2 10 ^3/uL Nucleated Red Blood Cells 0.4 % Platelet Estimate [place] Large Platelets Few Jyoti Cells Few Reticulocyte Count (auto) 13.27 H 0.5-1.5 % Iron Level 21 L 65-175 ug/dL Total Iron Binding Capacity 315 250-425 ug/dL Percent Iron Saturation 6.7 L 20-55 % Total Bilirubin 0.3 0.2-1.0 mg/dL Direct Bilirubin 0.1 <0.3 mg/dL Aspartate Amino Transferase (AST) 29 13-40 U/L Alanine Aminotransferase (ALT) 18 7-40 U/L Alkaline Phosphatase 79 46-116 U/L Lactate Dehydrogenase 224 120-246 U/L Total Protein 5.4 L 5.7-8.2 g/dL Albumin 3.6 3.2-4.8 g/dL Urine Color Light-yellow Yellow Urine Clarity Clear Clear Urine pH 5.0 5.0-9.0 Urine Specific [place] 1.012 1.001-1.035 Urine Protein Negative Negative Urine Ketones Negative Negative Urine Blood Negative Negative /uL Urine Nitrite Negative Negative Urine Bilirubin Negative Negative Urine Urobilinogen Normal Negative mg/dL Urine Leukocyte Esterase Negative Negative /uL Urine RBC 1 0 - 3 /hpf Urine WBC 1 0 - 3 /hpf Urine Squamous Epithelial Cells None seen <5 /hpf Urine Bacteria None seen None Seen /hpf Urine Glucose Normal Normal mg/dL Prothrombin Time 10.9 9.3-11.8 sec Prothrombin Time INR 1.03 0.9-1.15 Troponin I High Sensitivity 2151 *H </=54 ng/L Test 01/01/24 00:01 Range/Units Ovalocytes Few Stomatocytes Few Sodium Level 141 136-145 mmol/L Potassium Level 3.3 L 3.5-5.1 mmol/L Chloride Level 111 H 98-107 mmol/L Carbon Dioxide Level 20 20-31 mmol/L Anion Gap 10 5-15 Blood Urea Nitrogen 64 H 9-23 mg/dL Creatinine 2.76 H 0.700-1.30 mg/dL Glomerular Filtration Rate Calc 23 >90 mL/min BUN/Creatinine Ratio 23.2 H 10.0-20.0 Serum Glucose 107 H 74-106 mg/dL Calcium Level 8.3 L 8.7-10.4 mg/dL Problems(with codes): (1) Symptomatic anemia (2) NSTEMI (non-ST elevated myocardial infarction) (3) Acute chest pain Plan/Recommendation Plan Patient had moderate elevation in his troponins Lactic acidosis has improved Transfuse a total of 4 units PRBC if required Monitor H&H every 12 hours Hold Brilinta and blood thinners Cardiology consult CT scan abdomen pelvis Possible elective EGD and colonoscopy once cardiac stabilized possibly as an outpatient Plan discussed with: Patient MATTEO SEWELL MD Jan 01, 2024 16:39
[2024-01-01 19:12] LABS: Basophils # (auto) 0 10 ^3/uL (0-0.2); Eosinophils # (auto) 0.1 10 ^3/uL (0-0.8); Eosinophils % (auto) 0.9 % (0.0-7.0); Hemoglobin 7.3 g/dL (13.5-17.5); Neutrophils # (auto) 6.3 10 ^3/uL (1.6-8.6); Nucleated Red Blood Cells % 0.3 %
[2024-01-01 19:14] LABS: Basophils % (auto) 0.6 % (0.0-2.0); Hematocrit 21.4 % (41.0-53.0); Lymphocytes # (auto) 1.6 10 ^3/uL (0.4-5.4); Lymphocytes % (auto) 18.3 % (10.0-50.0); Mean Corpuscular Hgb Conc. 34.2 g/dL (32.0-36.0); Mean Corpuscular Volume 90.7 fL (80.0-100.0); Monocytes # (auto) 0.7 10 ^3/uL (0-1.3); Neutrophils % (auto) 72.2 % (37.0-80.0); Platelet Count (auto) 256 10^3/uL (140-450); Red Blood Cells 2.36 10^6/uL (4.5-5.90); Red Cell Distribution Width 15.4 % (11.8-14.3); White Blood Cell 8.7 10^3/uL (4.4-10.8)
--- NOTE | 2024-01-01 20:44 | DVHINCON2 ---
Date of service: Jan 01, 2024 Referring Physician Palomo Reason for Consultation Chest pain, Elevated troponin History of Present Illness This is a 73-year-old male with a PMH of hypertension, GERD, coronary artery disease, status post cardiac stents who presented to the ED with complaints of left sided chest pain x 2 days. Patient describes his chest pain as burning and radiation to his entire left arm. Patient has associated symptoms of shortness of breath, diaphoresis and epigastric abdominal pain. WBC 9.7, Hgb 4.6, Plt 32,1 Na 141, K 3.3, Bun 64, Creatinine 2.76, Glucose 107. Trops 2121 - > 2131 -> 2151. CXR: no acute pathology EKG: NSR. Patient was admitted to the hospital. I am asked to consult on this patient. Family History: Alcoholism FH: CHF (congestive heart failure) G8 FATHER FH: ovarian cancer G8 MOTHER FH: pancreatic cancer G8 BROTHER Allergies: Coded Allergies: Fish Allergy (Verified Allergy, Mild, 06/17/20) Sulfa Antibiotics (Verified Allergy, Unknown, 06/18/20) Home Meds No Active Prescriptions or Reported Meds Current Medications Current Medications Medications (Trade) Dose Ordered Sig/[facility] Route PRN Reason Start Time Stop Time Status Last Admin Ondansetron HCl (Zofran) 4 mg Q4HPRN PRN IV NAUSEA / VOMITING 01/01/24 04:30 Morphine Sulfate 2 mg Q3HPRN PRN IV SEVERE PAIN (7-10 PAIN SCALE) 01/01/24 04:30 Sodium Chloride 1,000 ml @ 100 mls/hr Q10H IV 01/01/24 04:30 01/01/24 04:30 Nitroglycerin (Ntrostat Sublingual) 0.4 mg Q5MINP PRN SL FOR CHEST PAIN 01/01/24 04:30 Potassium Chloride 100 ml @ 50 mls/hr Q2H IV 01/01/24 04:45 01/01/24 08:44 DC Pantoprazole Sodium 50 ml @ 10 mls/hr Q5H IV 01/01/24 09:15 Review of Systems Constitutional: denies: chills, diaphoresis, fatigue, fever, malaise, sweats, weakness, others EENTM: denies: blurred vision, double vision, ear bleeding, ear discharge, ear drainage, ear pain, ear ringing, eye pain, eye redness, hearing loss, mouth pain, mouth swelling, nasal discharge, nose bleeding, nose congestion, nose pain, photophobia, tearing, throat pain, throat swelling, voice changes, others Respiratory: reports: SOB at rest, shortness of breath; denies: cough, hemoptysis, orthopnea, SOB with excertion, stridor, wheezing, others Cardiovascular: reports: chest pain, left arm pain; denies: dizzy spells, diaphoresis, Dyspnea on exertion, edema, irregular heart beat, lightheadedness, palpitations, PND, syncope, others Gastrointestinal: reports: abdominal pain; denies: abdomen distended, blood streaked bowels, constipated, diarrhea, dysphagia, difficulty swallowing, hematemesis, melena, nausea, poor appetite, poor fluid intake, rectal bleeding, rectal pain, vomiting, others Genitourinary: denies: burning, dysuria, flank pain, frequency, hematuria, incontinence, penile discharge, penile sore, pain, testicle pain, testicle swelling, urgency, others Neurological: denies: dizziness, fainting, headache, left sided numbness, left sided weakness, numbness, paresthesia, pre-existing deficit, right sided numbness, right sided weakness, seizure, speech problems, tingling, tremors, weakness, others Musculoskeletal: denies: back pain, gout, joint pain, joint swelling, muscle pain, muscle stiffness, neck pain, others Integumetry: denies: bruises, change in color, change in hair/nails, dryness, laceration, lesions, lumps, rash, wounds, others Allergic/Immunocompromised: denies: Difficulty Healing, Frequent Infections, Hives, Itching, others Hematologic/Lymphatic: denies: anemia, blood clots, easy bleeding, easy bruisi ng, swollen glands, others Endocrine: denies: excessive hunger, excessive sweating, excessive thirst, exce ssive urination, flushing, intolerance to cold, intolerance to heat, unexplained weight gain, unexplained weight loss, others Psychiatric: denies: anxiety, bipolar disorder, depression, hopeless, panic disorder, schizophrenia, sleepless, suicidal, others Vital Signs Vital Signs Date Time Temp Pulse Resp B/P (MAP) Pulse Ox O2 Delivery O2 Flow Rate FiO2 01/01/24 12:26 97.9 73 16 120/71 97.9 01/01/24 11:56 92 01/01/24 09:30 Nasal Cannula* 3 32 Physical Exam GENERAL: Awake, alert, oriented. LUNGS: Clear. CARDIOVASCULAR: Heart sounds are good. ABDOMEN: Soft. Labs/Diagnostic Data Labs Test 01/01/24 06:39 01/01/24 04:39 01/01/24 02:48 01/01/24 02:47 Range/Units Lactic Acid Level 1.5 0.4-2.0 mmol/L White Blood Count 13.9 #H 4.4-10.8 10^3/uL Red Blood Count 1.44 L 4.5-5.90 10^6/uL Hemoglobin 4.3 *L 13.5-17.5 g/dL Hematocrit 14.4 L 41.0-53.0 % Mean Corpuscular Volume 99.8 # 80.0-100.0 fL Mean Corpuscular Hemoglobin 29.9 28.0-32.0 pg Mean Corpuscular Hemoglobin Concent 30.0 L 32.0-36.0 g/dL Red Cell Distribution Width 18.7 H 11.8-14.3 % Platelet Count 334 140-450 10^3/uL Mean Platelet Volume 7.4 6.9-10.8 fL Neutrophils (%) (Auto) 60.3 37.0-80.0 % Lymphocytes (%) (Auto) 31.6 10.0-50.0 % Monocytes (%) (Auto) 7.2 0.0-12.0 % Eosinophils (%) (Auto) 0.4 0.0-7.0 % Basophils (%) (Auto) 0.5 0.0-2.0 % Neutrophils # (Auto) 8.4 1.6-8.6 10 ^3/uL Lymphocytes # (Auto) 4.4 0.4-5.4 10 ^3/uL Monocytes # (Auto) 1.0 0-1.3 10 ^3/uL Eosinophils # (Auto) 0.1 0-0.8 10 ^3/uL Basophils # (Auto) 0.1 0-0.2 10 ^3/uL Nucleated Red Blood Cells 0.4 % Platelet Estimate [place] Large Platelets Few Jyoti Cells Few Reticulocyte Count (auto) 13.27 H 0.5-1.5 % Iron Level 21 L 65-175 ug/dL Total Iron Binding Capacity 315 250-425 ug/dL Percent Iron Saturation 6.7 L 20-55 % Total Bilirubin 0.3 0.2-1.0 mg/dL Direct Bilirubin 0.1 <0.3 mg/dL Aspartate Amino Transferase (AST) 29 13-40 U/L Alanine Aminotransferase (ALT) 18 7-40 U/L Alkaline Phosphatase 79 46-116 U/L Lactate Dehydrogenase 224 120-246 U/L Total Protein 5.4 L 5.7-8.2 g/dL Albumin 3.6 3.2-4.8 g/dL Urine Color Light-yellow Yellow Urine Clarity Clear Clear Urine pH 5.0 5.0-9.0 Urine Specific [place] 1.012 1.001-1.035 Urine Protein Negative Negative Urine Ketones Negative Negative Urine Blood Negative Negative /uL Urine Nitrite Negative Negative Urine Bilirubin Negative Negative Urine Urobilinogen Normal Negative mg/dL Urine Leukocyte Esterase Negative Negative /uL Urine RBC 1 0 - 3 /hpf Urine WBC 1 0 - 3 /hpf Urine Squamous Epithelial Cells None seen <5 /hpf Urine Bacteria None seen None Seen /hpf Urine Glucose Normal Normal mg/dL Prothrombin Time 10.9 9.3-11.8 sec Prothrombin Time INR 1.03 0.9-1.15 Troponin I High Sensitivity 2151 *H </=54 ng/L Test 01/01/24 00:01 Range/Units Ovalocytes Few Stomatocytes Few Sodium Level 141 136-145 mmol/L Potassium Level 3.3 L 3.5-5.1 mmol/L Chloride Level 111 H 98-107 mmol/L Carbon Dioxide Level 20 20-31 mmol/L Anion Gap 10 5-15 Blood Urea Nitrogen 64 H 9-23 mg/dL Creatinine 2.76 H 0.700-1.30 mg/dL Glomerular Filtration Rate Calc 23 >90 mL/min BUN/Creatinine Ratio 23.2 H 10.0-20.0 Serum Glucose 107 H 74-106 mg/dL Calcium Level 8.3 L 8.7-10.4 mg/dL Assessment Acute upper GI bleed. Acute blood loss anemia. Chest pain. Elevated troponin. JEOVANNY. Elevated troponin. CAD s/p PCI x4 in the past. HTN. Lactic acidemia. Plan/Recommendation I agree with your ongoing assessment and care of plan. Patient is cardiac cleared for EGD. Echocardiogram. Morphine for pain management. Nitro SL. GI prophylactics. Additional plan as per the hospital course. A total of 45 minutes was spent reviewing the patient record, examining the patient, making a diagnostic and therapeutic plan, discussing this plan with medical personnel, following up on diagnostic studies and following the patient for clinical stability excluding any and all procedures. At least 50% of this time was spent in direct, [id number] contact. Plan discussed with: Patient CHARI JADE MD Jan 01, 2024 13:24
[2024-01-02] VITALS (14 sets, daily range): BP systolic 113–135; BP diastolic 58–79; PULSE 68–92; RESP 16–21; TEMP 97.3–98.6; O2SAT 96–100
[2024-01-02 06:25] LABS: Basophils # (auto) 0 10 ^3/uL (0-0.2); Basophils % (auto) 0.4 % (0.0-2.0); Eosinophils # (auto) 0.2 10 ^3/uL (0-0.8); Eosinophils % (auto) 2.1 % (0.0-7.0); Lymphocytes # (auto) 1.4 10 ^3/uL (0.4-5.4); Monocytes # (auto) 0.7 10 ^3/uL (0-1.3)
[2024-01-02 06:27] LABS: Hematocrit 20.2 % (41.0-53.0); Lymphocytes % (auto) 18.7 % (10.0-50.0); Mean Corpuscular Hemoglobin 31.2 pg (28.0-32.0); Mean Corpuscular Hgb Conc. 34.2 g/dL (32.0-36.0); Mean Corpuscular Volume 91.2 fL (80.0-100.0); Monocytes % (auto) 10.1 % (0.0-12.0); Neutrophils % (auto) 68.7 % (37.0-80.0); Nucleated Red Blood Cells % 0.3 %; Platelet Count (auto) 244 10^3/uL (140-450); Red Blood Cells 2.22 10^6/uL (4.5-5.90); Red Cell Distribution Width 15.2 % (11.8-14.3); White Blood Cell 7.3 10^3/uL (4.4-10.8)
[2024-01-02 06:36] LABS: Alanine Aminotransferase 15 U/L (7-40); Albumin 3.1 g/dL (3.2-4.8); Alkaline Phosphatase 79 U/L (46-116); Anion Gap 8 (5-15); Aspartate Aminotransferase 25 U/L (13-40); BUN/Creatinine Ratio 20.3 (10.0-20.0); Bilirubin, Total 0.6 mg/dL (0.2-1.0); Calcium 7.9 mg/dL (8.7-10.4); Carbon Dioxide 18 mmol/L (20-31); Chloride 117 mmol/L (98-107); Glucose 89 mg/dL (74-106); Potassium 3.9 mmol/L (3.5-5.1); Sodium 143 mmol/L (136-145)
[2024-01-02 06:37] LABS: Hemoglobin 6.9 g/dL (13.5-17.5)
[2024-01-02 06:39] LABS: Blood Urea Nitrogen 54 mg/dL (9-23)
--- NOTE | 2024-01-02 08:19 | DVHPN2 ---
Progress Note - Dictate Date Seen: Jan 02, 2024 Medical Necessity Reason Pt with a Central, PICC or Fol: No Subjective Patient overall feels improved no acute complaints. vital signs Vital Sign Date Time Temp Pulse Resp B/P (MAP) Pulse Ox O2 Delivery O2 Flow Rate FiO2 01/02/24 07:47 75 18 96 Nasal Cannula* 2 28 01/02/24 05:00 98.2 121/58 (79) 98.2 Total Intake and Output 01/01/24 01/01/24 01/02/24 14:59 22:59 06:59 Intake Total 900 ml 350 ml 50 ml Output Total 1000 ml Balance 900 ml 350 ml -950 ml medications Current Medications Medications Dose Ordered Sig/[facility] Route Start Time Stop Time Status Last Admin Dose Admin Ondansetron HCl 4 mg Q4HPRN PRN IV 01/01/24 04:30 Morphine Sulfate 2 mg Q3HPRN PRN IV 01/01/24 04:30 Sodium Chloride 1,000 ml @ 100 mls/hr Q10H IV 01/01/24 04:30 01/01/24 14:47 100 MLS/HR Nitroglycerin 0.4 mg Q5MINP PRN SL 01/01/24 04:30 Pantoprazole Sodium 50 ml @ 10 mls/hr Q5H IV 01/01/24 09:15 01/02/24 06:56 10 MLS/HR objective GEN: A&Ox3, NAD HEENT: NC/AT CV: S1S2+, RRR Lungs: CTA Bilaterally Abd: Soft, NT, ND, +BS LE: No LE Edema laboratory and microbiology Laboratory Tests 01/02/24 05:06 Test 01/02/24 05:06 Range/Units Serum Glucose 89 74-106 mg/dL Problem List 1) Symptomatic Anemia, Rule out GI bleed 2) Iron deficiency Anemia 3) JEOVANNY 4) Elevated troponin, likely demand in the setting of anemia Secondary Diagnosis: 5) CAD s/p PCI x4 in the past 6) HTN Assessment/Plan - continue tele monitoring - transfuse another unit this morning, patient Hgb at 6.9 - Clear Liquids, protonix gtt, IVF hydration, - hold anticoagulants, - transfuse to keep hgb >7, CBC Q12 Hours - hemolytic work up was negative, patient has iron deficiency, start iron sulfate 325mg PO Daily - appreciate GI recommendations, awaiting for possible EGD for tomorrow - Echocardiogram results pending, awaiting cardiology clearance for EGD, DVT prophy: SCDs, Code Status: Full Code Plan discussed with: Patient FELI VILLALBA MD Jan 02, 2024 08:19
[2024-01-02] MEDS: FERROUS SULFATE 325mg EC TAB PO SCH (09:04)
[2024-01-02] MEDS: SODIUM CHLORIDE 0.9% 1,000 ML IV ONE (09:10)
--- NOTE | 2024-01-02 09:38 | DVHPN2 ---
Progress Note - Dictate Date Seen: Jan 02, 2024 Medical Necessity Reason Pt with a Central, PICC or Fol: No Subjective Patient was seen and evaluated in follow up. Patient reports feeling better this morning. Hemolytic work up was negative, patient has iron deficiency. Echocardiogram is pending. Possible EGD for tomorrow. Patient is cardiac cleared for EGD. vital signs Vital Sign Date Time Temp Pulse Resp B/P (MAP) Pulse Ox O2 Delivery O2 Flow Rate FiO2 01/02/24 09:00 98.6 82 17 113/60 (77) 100 98.6 01/02/24 07:47 Nasal Cannula* 2 28 Total Intake and Output 01/01/24 01/01/24 01/02/24 15:00 23:00 07:00 Intake Total 900 ml 350 ml 50 ml Output Total 1000 ml Balance 900 ml 350 ml -950 ml medications Current Medications Medications Dose Ordered Sig/[facility] Route Start Time Stop Time Status Last Admin Dose Admin Ondansetron HCl 4 mg Q4HPRN PRN IV 01/01/24 04:30 Morphine Sulfate 2 mg Q3HPRN PRN IV 01/01/24 04:30 Sodium Chloride 1,000 ml @ 100 mls/hr Q10H IV 01/01/24 04:30 01/01/24 14:47 100 MLS/HR Nitroglycerin 0.4 mg Q5MINP PRN SL 01/01/24 04:30 Pantoprazole Sodium 50 ml @ 10 mls/hr Q5H IV 01/01/24 09:15 01/02/24 09:04 10 MLS/HR Ferrous Sulfate 325 mg DAILY PO 01/02/24 10:00 01/02/24 09:04 325 MG objective GENERAL: Awake, alert, oriented. LUNGS: Clear. CARDIOVASCULAR: Heart sounds are good. ABDOMEN: Soft. laboratory and microbiology Laboratory Tests 01/02/24 05:06 Test 01/02/24 05:06 Range/Units Serum Glucose 89 74-106 mg/dL Problem List Acute upper GI bleed. Iron deficiency anemia. Chest pain. Elevated troponin. JEOVANNY. Elevated troponin. CAD s/p PCI x4 in the past. HTN. Lactic acidemia. Assessment/Plan Continued all current supportive medical care. Patient is cardiac cleared for EGD. Echocardiogram. Morphine for pain management. Nitro SL. GI prophylactics. Additional plan as per the hospital course. Plan discussed with: Patient CHARI JADE MD Jan 02, 2024 09:38
--- NOTE | 2024-01-02 10:16 | DVH ---
CT ABDOMEN AND PELVIS WITHOUT CONTRAST CLINICAL HISTORY: Abdominal pain TECHNIQUE: Multidetector CT of the abdomen was performed from lung bases to pubic symphysis. Imaging was performed without IV contrast. Axial, coronal and sagittal multiplanar reformats were obtained fr om the axial data set by the technologist. Radiation optimization: All CT scans at this facility use at least one of these dose optimization celia hniques: automated exposure control mA and/or kV adjustment per patient size (includes targeted exam s where dose is matched to clinical indication) or iterative reconstruction. Radiation Dose Information: CT Dose: CTDI volume is 10.36 mGy. Dose-length product is 677.3 mGy*cm Comparison: CT CHST AB PEL WO CON-NO IV/ORAL on DOS: 08/25/22 FINDINGS: Evaluation of the abdominal viscera is limited without intravenous contrast. There is moderate bilateral hydroureteronephrosis. There is no evidence of a left renal or ureteral c alculus. There is a 6 mm calculus in the distal right ureter. There is no evidence of right renal tyler culus. Bladder is moderately distended. There is no evidence of a bladder calculus. There is mild pro statomegaly. The liver, gallbladder, pancreas, adrenal glands, and spleen appear within normal limits. There is no gross evidence of abdominal lymphadenopathy. There is no free fluid or free air. There is a large right inguinal hernia containing intra-abdominal fat and small bowel loops. There is no evidence of bowel obstruction. Small and large bowel loops demonstrate normal caliber. Air inter mixed with stool is seen in the colon. There is a small hiatal hernia. The abdominal aorta and IVC appear within normal limits. There is no gross evidence of a pelvic mass or fluid collection. Lung bases are clear. There is a fat containing umbilical hernia. There is dextroconvex scoliosis of the lumbar spine with multilevel degenerative changes. IMPRESSION: 1. Moderate bilateral hydronephrosis. There is no evidence of left renal or ureteral calculus. There is a 6 mm calculus in the distal right ureter. There is no right renal calculus. 2. Moderately distended bladder. There is no evidence of a bladder calculus. 3. Mild prostatomegaly. 4. Large right inguinal hernia containing small bowel loops. There is no evidence of bowel obstructi on.. 5. Fat containing umbilical hernia. 6. Small hiatal hernia. HS:Y
--- NOTE | 2024-01-02 13:49 | ECG ---
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
[2024-01-02 18:30] LABS: Basophils # (auto) 0 10 ^3/uL (0-0.2); Hemoglobin 8.1 g/dL (13.5-17.5); Lymphocytes # (auto) 1.3 10 ^3/uL (0.4-5.4); Monocytes # (auto) 0.8 10 ^3/uL (0-1.3); Monocytes % (auto) 10.2 % (0.0-12.0); Neutrophils # (auto) 5.6 10 ^3/uL (1.6-8.6); Nucleated Red Blood Cells % 0.2 %; White Blood Cell 7.9 10^3/uL (4.4-10.8)
[2024-01-02 18:32] LABS: Basophils % (auto) 0.2 % (0.0-2.0); Eosinophils # (auto) 0.2 10 ^3/uL (0-0.8); Eosinophils % (auto) 2.1 % (0.0-7.0); Hematocrit 24.7 % (41.0-53.0); Lymphocytes % (auto) 16.3 % (10.0-50.0); Mean Corpuscular Hemoglobin 29.9 pg (28.0-32.0); Mean Corpuscular Hgb Conc. 32.9 g/dL (32.0-36.0); Mean Corpuscular Volume 90.8 fL (80.0-100.0); Neutrophils % (auto) 71.2 % (37.0-80.0); Platelet Count (auto) 242 10^3/uL (140-450); Red Blood Cells 2.72 10^6/uL (4.5-5.90)
--- NOTE | 2024-01-02 18:33 | DVHPN2 ---
Progress Note - Dictate Date Seen: Jan 02, 2024 Medical Necessity Reason Pt with a Central, PICC or Fol: No Subjective No new complaints Hb dropped to 6.9 Brilinta on hold vital signs Vital Sign Date Time Temp Pulse Resp B/P (MAP) Pulse Ox O2 Delivery O2 Flow Rate FiO2 01/02/24 17:00 97.9 68 21 133/72 (92) 100 97.9 01/02/24 09:30 Nasal Cannula* 3 32 Total Intake and Output 01/01/24 01/01/24 01/02/24 15:00 23:00 07:00 Intake Total 900 ml 350 ml 50 ml Output Total 1000 ml Balance 900 ml 350 ml -950 ml medications Current Medications Medications Dose Ordered Sig/[facility] Route Start Time Stop Time Status Last Admin Dose Admin Ondansetron HCl 4 mg Q4HPRN PRN IV 01/01/24 04:30 Morphine Sulfate 2 mg Q3HPRN PRN IV 01/01/24 04:30 Sodium Chloride 1,000 ml @ 100 mls/hr Q10H IV 01/01/24 04:30 01/01/24 14:47 100 MLS/HR Nitroglycerin 0.4 mg Q5MINP PRN SL 01/01/24 04:30 Pantoprazole Sodium 50 ml @ 10 mls/hr Q5H IV 01/01/24 09:15 01/02/24 16:09 10 MLS/HR Ferrous Sulfate 325 mg DAILY PO 01/02/24 10:00 01/02/24 09:04 325 MG objective General Appeara: Well developed, thin male no acute distress Neck Exam: Normal inspection, mild pallor Pulmonary/Respiratory: Normal inspection Cardiovascular/Chest: Regular rate Abdomen is soft nontender nondistended Extremities show no clubbing cyanosis or edema Neuro he is alert arrange x3 with no focal deficit laboratory and microbiology Laboratory Tests 01/02/24 05:06 Test 01/02/24 05:06 Range/Units Serum Glucose 89 74-106 mg/dL Problems(with codes): (1) Symptomatic anemia (2) NSTEMI (non-ST elevated myocardial infarction) (3) Acute chest pain Prognosis PLAN Severe Iron deficiency anemia; no active GI bleed reported S/P 4 U PRBC Possibly related to Brilinta Stool for occult blood negative Awaiting Echocardiogram Cardiac cleared for EGD awaiting echo results IV PPI Possible EGD 01/02 pending schedule availability Plan discussed with: Other (Dr Lee) MATTEO SEWELL MD Jan 02, 2024 18:33
[2024-01-03 01:00] VITALS: BP 139/77; PULSE 72; RESP 18; TEMP 97.5; O2SAT 99
[2024-01-03 05:00] VITALS: BP 147/59; PULSE 72; RESP 18; TEMP 97.4; O2SAT 100
[2024-01-03 06:45] LABS: Basophils # (auto) 0 10 ^3/uL (0-0.2); Eosinophils # (auto) 0.3 10 ^3/uL (0-0.8); Eosinophils % (auto) 3.2 % (0.0-7.0); Hemoglobin 7.7 g/dL (13.5-17.5); Neutrophils # (auto) 5.9 10 ^3/uL (1.6-8.6); Nucleated Red Blood Cells % 0.1 %; White Blood Cell 8.4 10^3/uL (4.4-10.8)
[2024-01-03 06:49] LABS: Basophils % (auto) 0.4 % (0.0-2.0); Hematocrit 22.7 % (41.0-53.0); Lymphocytes # (auto) 1.3 10 ^3/uL (0.4-5.4); Lymphocytes % (auto) 15.5 % (10.0-50.0); Mean Corpuscular Hemoglobin 30.2 pg (28.0-32.0); Mean Corpuscular Volume 88.8 fL (80.0-100.0); Monocytes # (auto) 0.9 10 ^3/uL (0-1.3); Neutrophils % (auto) 69.9 % (37.0-80.0); Platelet Count (auto) 246 10^3/uL (140-450); Red Blood Cells 2.56 10^6/uL (4.5-5.90); Red Cell Distribution Width 17.2 % (11.8-14.3)
[2024-01-03 06:51] LABS: Alanine Aminotransferase 12 U/L (7-40); Albumin 3.1 g/dL (3.2-4.8); Alkaline Phosphatase 84 U/L (46-116); Anion Gap 7 (5-15); Aspartate Aminotransferase 20 U/L (13-40); BUN/Creatinine Ratio 15.2 (10.0-20.0); Bilirubin, Total 0.6 mg/dL (0.2-1.0); Calcium 8.2 mg/dL (8.7-10.4); Carbon Dioxide 17 mmol/L (20-31); Chloride 117 mmol/L (98-107); Glucose 92 mg/dL (74-106); Potassium 4.4 mmol/L (3.5-5.1); Sodium 141 mmol/L (136-145); Total Protein 4.9 g/dL (5.7-8.2)
[2024-01-03 06:54] LABS: Blood Urea Nitrogen 36 mg/dL (9-23)
[2024-01-03 08:09] VITALS: PULSE 70; RESP 18; O2SAT 96
[2024-01-03 08:24] VITALS: PULSE 92
[2024-01-03] MEDS ORDERED: PANT40TA2 PO (08:29)
[2024-01-03] MEDS ORDERED: FER325T PO (08:29)
[2024-01-03] MEDS ORDERED: ASPI81CH59 PO (08:43)
[2024-01-03] MEDS ORDERED: TAMS-35 PO (08:43)
[2024-01-03 09:00] VITALS: BP 146/73; PULSE 75; RESP 18; TEMP 97.8; O2SAT 99
--- NOTE | 2024-01-03 09:00 | DVHDS2 ---
Discharge Summary Date of Admission Jan 01, 2024 at 04:22 Date of Discharge: Jan 03, 2024 Admitting Diagnosis Symptomatic anemia, rule out GI bleeding Wounds: None Labs/Diagnostic Data: Laboratory Results Test 01/03/24 05:57 01/01/24 06:39 01/01/24 04:39 01/01/24 02:48 White Blood Count 8.4 10^3/uL (4.4-10.8) Red Blood Count 2.56 10^6/uL (4.5-5.90) Hemoglobin 7.7 g/dL (13.5-17.5) Hematocrit 22.7 % (41.0-53.0) Mean Corpuscular Volume 88.8 fL (80.0-100.0) Mean Corpuscular Hemoglobin 30.2 pg (28.0-32.0) Mean Corpuscular Hemoglobin Concent 34.0 g/dL (32.0-36.0) Red Cell Distribution Width 17.2 % (11.8-14.3) Platelet Count 246 10^3/uL (140-450) Mean Platelet Volume 7.2 fL (6.9-10.8) Neutrophils (%) (Auto) 69.9 % (37.0-80.0) Lymphocytes (%) (Auto) 15.5 % (10.0-50.0) Monocytes (%) (Auto) 11.0 % (0.0-12.0) Eosinophils (%) (Auto) 3.2 % (0.0-7.0) Basophils (%) (Auto) 0.4 % (0.0-2.0) Neutrophils # (Auto) 5.9 10 ^3/uL (1.6-8.6) Lymphocytes # (Auto) 1.3 10 ^3/uL (0.4-5.4) Monocytes # (Auto) 0.9 10 ^3/uL (0-1.3) Eosinophils # (Auto) 0.3 10 ^3/uL (0-0.8) Basophils # (Auto) 0 10 ^3/uL (0-0.2) Nucleated Red Blood Cells 0.1 % Sodium Level 141 mmol/L (136-145) Potassium Level 4.4 mmol/L (3.5-5.1) Chloride Level 117 mmol/L (98-107) Carbon Dioxide Level 17 mmol/L (20-31) Anion Gap 7 (5-15) Blood Urea Nitrogen 36 mg/dL (9-23) Creatinine 2.37 mg/dL (0.700-1.30) Glomerular Filtration Rate Calc 28 mL/min (>90) BUN/Creatinine Ratio 15.2 (10.0-20.0) Serum Glucose 92 mg/dL (74-106) Calcium Level 8.2 mg/dL (8.7-10.4) Total Bilirubin 0.6 mg/dL (0.2-1.0) Aspartate Amino Transferase (AST) 20 U/L (13-40) Alanine Aminotransferase (ALT) 12 U/L (7-40) Alkaline Phosphatase 84 U/L (46-116) Total Protein 4.9 g/dL (5.7-8.2) Albumin 3.1 g/dL (3.2-4.8) Lactic Acid Level 1.5 mmol/L (0.4-2.0) Platelet Estimate [place] Large Platelets Few [place] Cells Few Reticulocyte Count (auto) 13.27 % (0.5-1.5) Iron Level 21 ug/dL (65-175) Total Iron Binding Capacity 315 ug/dL (250-425) Percent Iron Saturation 6.7 % (20-55) Direct Bilirubin 0.1 mg/dL (<0.3) Lactate Dehydrogenase 224 U/L (120-246) Urine Color Light-yellow (Yellow) Urine Clarity Clear (Clear) Urine pH 5.0 (5.0-9.0) Urine Specific [place] 1.012 (1.001-1.035) Urine Protein Negative (Negative) Urine Ketones Negative (Negative) Urine Blood Negative /uL (Negative) Urine Nitrite Negative (Negative) Urine Bilirubin Negative (Negative) Urine Urobilinogen Normal mg/dL (Negative) Urine Leukocyte Esterase Negative /uL (Negative) Urine RBC 1 /hpf (0 - 3) Urine WBC 1 /hpf (0 - 3) Urine Squamous Epithelial Cells None seen /hpf (<5) Urine Bacteria None seen /hpf (None Seen) Urine Glucose Normal mg/dL (Normal) Test 01/01/24 02:47 01/01/24 00:01 Prothrombin Time 10.9 sec (9.3-11.8) Prothrombin Time INR 1.03 (0.9-1.15) Troponin I High Sensitivity 2151 ng/L (</=54) Ovalocytes Few Stomatocytes Few Other Laboratory Tests 01/03/24 05:57 Brief Hx & Hospital Course: This is a 73 YO Male admitted to the hospital for concern for GI bleeding with underline symptomatic anemia with iron deficiency. Patient had negative fecal occult stool but required 4 units of blood transfusion during his hospital course. Patient was seen by GI and was cleared to be discharged on PPI after patient refusing to have EGD. Patient will require outpatient EGD and Colonoscopy to be competed for iron deficiency and rule out of colorectal cancer. Patient also had some minimal troponin elevation int he setting of symptomatic anemia and all seem to be demand related. Patient was also seen by cardiology and cleared from there perspective. Patient has been off antiplatelet therapy for two years and seems to be medication non complaint. Patient will be informed that he should start taking baby ASA once week from today given history of 4 coronary stents. Patient was also found to have acute kidney injury on CKD. Patient CT abdomen showed bilateral hydronephrosis and renal stones with a distal right ureter 6mm stone and with also a distended bladder. Patient was recommended to have Poole catheter placement as well as possible nephrostomy placement for urinary drainage. Patient however refuses any interventions and would like to go home. Patient was made well aware by me as well as nephrology that his renal condition could progress and might lead to renal failure and requirement for dialysis. Patient understands the risks of progression of his renal disease and would like to be discharged to follow up in outpatient setting. Patient will be initiated on Flomax and arranged for close PCP and Urology referral. Consults/Reason for consult Dr. Chi Albarran, GI Dr. Dee Barker, Cardiology Dr. Nelson, Nephro Operations or Procedures None Condition at Discharge: Stable Final Diagnosis/Problems List 1) Symptomatic Anemia 2) Iron deficiency Anemia 3) JEOVANNY 4) Obstructive uropathy with 6mm Right distal urerter stone 5) Demand related ischemia 6) Medication Non complaince Secondary Diagnosis: 5) CAD s/p PCI x4 in the past 6) HTN Discharge Disposition: Home Discharge Instruct/Medications Diet: Cardiac 2g Na,low cholest Activity: No Restrictions, As Tolerated Follow Up/Referral: PCP Follow up in the next 5-7 days GI referral in the next 1-2 weeks, outpatient EGD and Colonoscopy Urology Referral in the next 3-5 days Repeat BMP in 7 days Medications: Iron Sulfate 325mg PO daily Protonix 40mg PO daily Flomax 0.4mg PO daily ASA EC 81mg PO daily, start 7 days after discharge Discharge Statement: "Patient was advised to return to the ER or call 911 if any headaches, dizziness, shortness of breath, chest pain, abdominal pain, bleeding, fevers, or worsening of medical condition. Patient was counseled about treatment plan, medications, possible side effects, patientverbalized understanding. All questions were answered to the best of my ability. This discharge took greater then 30 minutes in planning, reviewing documentation, counseling the patient, and discussing with other team members." ASSESSMENT ASSESSMENT Assessment 1) Symptomatic Anemia, Rule out GI bleed 2) Iron deficiency Anemia 3) JEOVANNY 4) Obstructive uropathy 5) Demand related ischemia Secondary Diagnosis: 5) CAD s/p PCI x4 in the past 6) HTN FELI VILLALBA MD Jan 03, 2024 09:00
[2024-01-03 09:25] VITALS: TEMP 36.3
--- NOTE | 2024-01-03 09:34 | DVHINCON2 ---
Date of service: Jan 03, [address] Culver Reason for Consultation JEOVANNY History of Present Illness 73-year-old white male with past medical history of coronary artery disease with history of stents reports stopped taking his antiplatelet medications approximately five years ago, history of hypertension reports not on medication. Reports he has not seen a medical doctors over the last three years. Presents to the hospital complaining of chest pain. He is found to have a hemoglobin of 4.6. He is status post blood transfusion. His imaging was notable for large abdominal and inguinal hernia as well as bilateral hydronephrosis. Patient refused anemia workup. Nephrology consulted due to acute kidney injury. Patient's GFR was approximately 28% this admission with comparison of the greater than 60% GFR in 2022. Past Medical History htn cad Allergies: Coded Allergies: Fish Allergy (Verified Allergy, Mild, 06/17/20) Sulfa Antibiotics (Verified Allergy, Unknown, 06/18/20) Home Meds Active Scripts Tamsulosin Hcl (Flomax) 0.4 Mg Cap, 1 CAP PO DAILY, #90 CAP 0 Refills Prov:FELI VILLALBA MD 01/03/24 Aspirin (Aspirin Low Dose) 81 Mg Chw, 1 TAB PO DAILY, #90 TAB 0 Refills Prov:FELI VILLALBA MD 01/03/24 Pantoprazole Sodium Sesquihydr (Protonix) 40 Mg Tab, 40 MG PO DAILY, #90 TAB Prov:FELI VILLALBA MD 01/03/24 Ferrous Sulfate (Ferrous Sulfate) 325 Mg Tab, 325 MG PO DAILY for 90 Days, #90 TAB Prov:FELI VILLALBA MD 01/03/24 Current Medications Current Medications Medications (Trade) Dose Ordered Sig/Mercy Route PRN Reason Start Time Stop Time Status Last Admin Ferrous Sulfate 325 mg DAILY PO 01/02/24 10:00 01/02/24 09:04 Family History: Alcoholism FH: CHF (congestive heart failure) G8 FATHER FH: ovarian cancer G8 MOTHER FH: pancreatic cancer G8 BROTHER Review of Systems Chest pain H&P Exam Vital Signs/I&O Vital Sign Date Time Temp Pulse Resp B/P (MAP) Pulse Ox O2 Delivery O2 Flow Rate FiO2 01/03/24 09:25 36.3 01/03/24 08:24 92 01/03/24 08:09 18 96 Nasal Cannula* 2 28 01/03/24 05:00 147/59 (88) Intake and Output 01/02/24 01/03/24 19:00 07:00 Intake Total 2900 ml 1650 ml Output Total 2000 ml 1100 ml Balance 900 ml 550 ml Intake Oral 1920 ml 1600 ml IV Total 680 ml 50 ml Blood Product 300 ml Output Urine Total 2000 ml 1100 ml Physical Exam Elderly white male Not in overt distress Decreased muscle tone Abdomen non firm not guarding Inguinal hernia No pitting edema Regular rate and rhythm Labs/Diagnostic Data Labs/Diagnostic Data Laboratory Tests Test 01/03/24 05:57 01/02/24 17:45 01/02/24 05:06 01/01/24 19:02 Range/Units White Blood Count 8.4 7.9 7.3 8.7 # 4.4-10.8 10^3/uL Red Blood Count 2.56 L 2.72 L 2.22 L 2.36 L 4.5-5.90 10^6/uL Hemoglobin 7.7 L 8.1 #L 6.9 *L 7.3 #L 13.5-17.5 g/dL Hematocrit 22.7 L 24.7 #L 20.2 L 21.4 #L 41.0-53.0 % Mean Corpuscular Volume 88.8 90.8 91.2 90.7 # 80.0-100.0 fL Mean Corpuscular Hemoglobin 30.2 29.9 31.2 31.0 28.0-32.0 pg Mean Corpuscular Hemoglobin Concent 34.0 32.9 34.2 34.2 32.0-36.0 g/dL Red Cell Distribution Width 17.2 H 18.0 H 15.2 H 15.4 H 11.8-14.3 % Platelet Count 246 242 244 256 140-450 10^3/uL Mean Platelet Volume 7.2 7.1 7.4 7.1 6.9-10.8 fL Neutrophils (%) (Auto) 69.9 71.2 68.7 72.2 37.0-80.0 % Lymphocytes (%) (Auto) 15.5 16.3 18.7 18.3 10.0-50.0 % Monocytes (%) (Auto) 11.0 10.2 10.1 8.0 0.0-12.0 % Eosinophils (%) (Auto) 3.2 2.1 2.1 0.9 0.0-7.0 % Basophils (%) (Auto) 0.4 0.2 0.4 0.6 0.0-2.0 % Neutrophils # (Auto) 5.9 5.6 5.0 6.3 1.6-8.6 10 ^3/uL Lymphocytes # (Auto) 1.3 1.3 1.4 1.6 0.4-5.4 10 ^3/uL Monocytes # (Auto) 0.9 0.8 0.7 0.7 0-1.3 10 ^3/uL Eosinophils # (Auto) 0.3 0.2 0.2 0.1 0-0.8 10 ^3/uL Basophils # (Auto) 0 0 0 0 0-0.2 10 ^3/uL Nucleated Red Blood Cells 0.1 0.2 0.3 0.3 % Sodium Level 141 143 136-145 mmol/L Potassium Level 4.4 3.9 3.5-5.1 mmol/L Chloride Level 117 H 117 H 98-107 mmol/L Carbon Dioxide Level 17 L 18 L 20-31 mmol/L Anion Gap 7 8 5-15 Blood Urea Nitrogen 36 #H 54 #H 9-23 mg/dL Creatinine 2.37 H 2.66 H 0.700-1.30 mg/dL Glomerular Filtration Rate Calc 28 24 >90 mL/min BUN/Creatinine Ratio 15.2 20.3 H 10.0-20.0 Serum Glucose 92 89 74-106 mg/dL Calcium Level 8.2 L 7.9 L 8.7-10.4 mg/dL Total Bilirubin 0.6 0.6 0.2-1.0 mg/dL Aspartate Amino Transferase (AST) 20 25 13-40 U/L Alanine Aminotransferase (ALT) 12 15 7-40 U/L Alkaline Phosphatase 84 79 46-116 U/L Total Protein 4.9 L 5.0 L 5.7-8.2 g/dL Albumin 3.1 L 3.1 L 3.2-4.8 g/dL Test 01/01/24 06:39 01/01/24 04:39 01/01/24 04:34 01/01/24 02:48 Range/Units Lactic Acid Level 1.5 8.0 *H 0.4-2.0 mmol/L White Blood Count 13.9 #H 4.4-10.8 10^3/uL Red Blood Count 1.44 L 4.5-5.90 10^6/uL Hemoglobin 4.3 *L 13.5-17.5 g/dL Hematocrit 14.4 L 41.0-53.0 % Mean Corpuscular Volume 99.8 # 80.0-100.0 fL Mean Corpuscular Hemoglobin 29.9 28.0-32.0 pg Mean Corpuscular Hemoglobin Concent 30.0 L 32.0-36.0 g/dL Red Cell Distribution Width 18.7 H 11.8-14.3 % Platelet Count 334 140-450 10^3/uL Mean Platelet Volume 7.4 6.9-10.8 fL Neutrophils (%) (Auto) 60.3 37.0-80.0 % Lymphocytes (%) (Auto) 31.6 10.0-50.0 % Monocytes (%) (Auto) 7.2 0.0-12.0 % Eosinophils (%) (Auto) 0.4 0.0-7.0 % Basophils (%) (Auto) 0.5 0.0-2.0 % Neutrophils # (Auto) 8.4 1.6-8.6 10 ^3/uL Lymphocytes # (Auto) 4.4 0.4-5.4 10 ^3/uL Monocytes # (Auto) 1.0 0-1.3 10 ^3/uL Eosinophils # (Auto) 0.1 0-0.8 10 ^3/uL Basophils # (Auto) 0.1 0-0.2 10 ^3/uL Nucleated Red Blood Cells 0.4 % Platelet Estimate [place] Large Platelets Few [place] Cells Few Reticulocyte Count (auto) 13.27 H 0.5-1.5 % Iron Level 21 L 65-175 ug/dL Total Iron Binding Capacity 315 250-425 ug/dL Percent Iron Saturation 6.7 L 20-55 % Total Bilirubin 0.3 0.2-1.0 mg/dL Direct Bilirubin 0.1 <0.3 mg/dL Aspartate Amino Transferase (AST) 29 13-40 U/L Alanine Aminotransferase (ALT) 18 7-40 U/L Alkaline Phosphatase 79 46-116 U/L Lactate Dehydrogenase 224 120-246 U/L Total Protein 5.4 L 5.7-8.2 g/dL Albumin 3.6 3.2-4.8 g/dL Urine Color Light-yellow Yellow Urine Clarity Clear Clear Urine pH 5.0 5.0-9.0 Urine Specific [place] 1.012 1.001-1.035 Urine Protein Negative Negative Urine Ketones Negative Negative Urine Blood Negative Negative /uL Urine Nitrite Negative Negative Urine Bilirubin Negative Negative Urine Urobilinogen Normal Negative mg/dL Urine Leukocyte Esterase Negative Negative /uL Urine RBC 1 0 - 3 /hpf Urine WBC 1 0 - 3 /hpf Urine Squamous Epithelial Cells None seen <5 /hpf Urine Bacteria None seen None Seen /hpf Urine Glucose Normal Normal mg/dL Test 01/01/24 02:47 01/01/24 01:33 01/01/24 00:01 Range/Units Prothrombin Time 10.9 9.3-11.8 sec Prothrombin Time INR 1.03 0.9-1.15 Troponin I High Sensitivity 2151 *H 2131 *H 2121 *H </=54 ng/L White Blood Count 9.7 4.4-10.8 10^3/uL Red Blood Count 1.48 L 4.5-5.90 10^6/uL Hemoglobin 4.6 *L 13.5-17.5 g/dL Hematocrit 13.8 L 41.0-53.0 % Mean Corpuscular Volume 93.0 80.0-100.0 fL Mean Corpuscular Hemoglobin 31.3 28.0-32.0 pg Mean Corpuscular Hemoglobin Concent 33.7 32.0-36.0 g/dL Red Cell Distribution Width 17.7 H 11.8-14.3 % Platelet Count 321 140-450 10^3/uL Mean Platelet Volume 7.1 6.9-10.8 fL Neutrophils (%) (Auto) 71.3 37.0-80.0 % Lymphocytes (%) (Auto) 18.1 10.0-50.0 % Monocytes (%) (Auto) 9.8 0.0-12.0 % Eosinophils (%) (Auto) 0.5 0.0-7.0 % Basophils (%) (Auto) 0.3 0.0-2.0 % Neutrophils # (Auto) 6.9 1.6-8.6 10 ^3/uL Lymphocytes # (Auto) 1.8 0.4-5.4 10 ^3/uL Monocytes # (Auto) 1.0 0-1.3 10 ^3/uL Eosinophils # (Auto) 0 0-0.8 10 ^3/uL Basophils # (Auto) 0 0-0.2 10 ^3/uL Nucleated Red Blood Cells 0.5 % Platelet Estimate [place] Large Platelets Few Ovalocytes Few Stomatocytes Few Sodium Level 141 136-145 mmol/L Potassium Level 3.3 L 3.5-5.1 mmol/L Chloride Level 111 H 98-107 mmol/L Carbon Dioxide Level 20 20-31 mmol/L Anion Gap 10 5-15 Blood Urea Nitrogen 64 H 9-23 mg/dL Creatinine 2.76 H 0.700-1.30 mg/dL Glomerular Filtration Rate Calc 23 >90 mL/min BUN/Creatinine Ratio 23.2 H 10.0-20.0 Serum Glucose 107 H 74-106 mg/dL Calcium Level 8.3 L 8.7-10.4 mg/dL Assessment Acute kidney injury on chronic kidney disease stage 2 Bilateral hydronephrosis Right 6 mm distal ureteral stone Noncompliance with medical therapy CAd hx stent refused his antiplatelet therapy Anemia multifactorial Right inguinal hernia Explained to patient has significant renal function loss over the past year. I recommend Poole catheter placement. I also recommend placement of a percutaneous nephrostomy tube if medical expulsion therapy can not pass distal ureteral stone. I recommend IV fluid hydration. I have explained to the above medical recommendations however patient refused medical interventions. I explained to patient that lack of intervention can lead to further loss of renal function and results in permanent renal dysfunction leading to dialysis. Patient accepted risk and reports that he wants to undergo outpatient treatment and go home immediately The above discussion was discussed with primary medical attending who reports that patient also has declined anemia and abdominal workup. Risks and benefits explained to patient We will obtain outpatient follow-up Rest of care as per primary medical team Plan discussed with: Patient LINK ALVARENGA MD Jan 03, 2024 09:34
--- NOTE | 2024-01-03 12:55 | DVHPN2 ---
Progress Note - Dictate Date Seen: Jan 03, 2024 Medical Necessity Reason Pt with a Central, PICC or Fol: No Subjective Patient was seen and evaluated in follow up. Patient has no new complaints. Patient reported he no longer wants EGD and wanted to scheduled procedure outpatient. Patient is cardiac stable for discharge. vital signs Vital Sign Date Time Temp Pulse Resp B/P (MAP) Pulse Ox O2 Delivery O2 Flow Rate FiO2 01/03/24 09:25 36.3 01/03/24 09:00 75 18 146/73 (97) 99 01/03/24 08:09 Nasal Cannula* 2 28 Total Intake and Output 01/02/24 01/02/24 01/03/24 15:00 23:00 07:00 Intake Total 350 ml 2550 ml 1650 ml Output Total 2000 ml 1100 ml Balance 350 ml 550 ml 550 ml objective GENERAL: Awake, alert, oriented. LUNGS: Clear. CARDIOVASCULAR: Heart sounds are good. ABDOMEN: Soft. laboratory and microbiology Laboratory Tests 01/03/24 05:57 Test 01/03/24 05:57 Range/Units Serum Glucose 92 74-106 mg/dL Problem List Acute upper GI bleed. Iron deficiency anemia. Chest pain. Elevated troponin. JEOVANNY. Elevated troponin. CAD s/p PCI x4 in the past. HTN. Lactic acidemia. Assessment/Plan Continued all current supportive medical care. Patient is cardiac cleared for EGD. Echocardiogram. Morphine for pain management. GI prophylactics. Additional plan as per the hospital course. Plan discussed with: Patient CHARI JADE MD Jan 03, 2024 12:54
--- NOTE | 2024-01-03 19:55 | DVHPN2 ---
Progress Note - Dictate Date Seen: Jan 03, 2024 (Late entryPt seen at 7.30 am) Medical Necessity Reason Pt with a Central, PICC or Fol: No Subjective No new complaints Hb at 7.7 Brilinta on hold vital signs Vital Sign Date Time Temp Pulse Resp B/P (MAP) Pulse Ox O2 Delivery O2 Flow Rate FiO2 01/03/24 09:25 36.3 01/03/24 09:00 75 18 146/73 (97) 99 01/03/24 08:09 Nasal Cannula* 2 28 Total Intake and Output 01/02/24 01/02/24 01/03/24 15:00 23:00 07:00 Intake Total 350 ml 2550 ml 1650 ml Output Total 2000 ml 1100 ml Balance 350 ml 550 ml 550 ml objective General Appeara: Well developed, thin male no acute distress Neck Exam: Normal inspection, mild pallor Pulmonary/Respiratory: Normal inspection Cardiovascular/Chest: Regular rate Abdomen is soft nontender nondistended Extremities show no clubbing cyanosis or edema Neuro he is alert arrange x3 with no focal deficit laboratory and microbiology Laboratory Tests 01/03/24 05:57 Test 01/03/24 05:57 Range/Units Serum Glucose 92 74-106 mg/dL Problems(with codes): (1) Iron deficiency anemia (2) Symptomatic anemia (3) NSTEMI (non-ST elevated myocardial infarction) (4) Acute chest pain (5) History of TIA (transient ischemic attack) (6) Acquired communicating hydrocephalus Prognosis PLAN Patient was tentatively scheduled for an endoscopy this afternoon However patient was refusing to get any endoscopic workup Patient stated he will follow up with his PCP and arrange outpatient referral for panendoscopy Patient was advised to discontinue his ibuprofen and take Tylenol instead He was advised to stay on Protonix 40 mg p.o. daily Patient will be started on iron pills We will hold a blood thinners for another week Patient was told to return to ER if he has any ongoing symptoms Discharge planning will be in progress Plan discussed with: Patient, Other (Nurse and Dr Ayala) MATTEO SEWELL MD Jan 03, 2024 19:55
[2024-01-04 08:06] LABS: Prostate Specific Antigen 0.4 ng/mL (0.0-4.0)
--- NOTE | 2024-01-04 09:16 | DVHSR ---
APPROVED REPORT EXAM: Two-dimensional and M-mode echocardiogram with Doppler and color Doppler. Blood Pressure: 125/65 mmHg INDICATION Elevated trops evaluate for wall motion abnormality RISK FACTORS Height: 5'11", Weight: 170 DIMENSIONS LVDd4.8 (3.8-5.7cm)LA (2D)4.0 (1.9-4.0cm)Aortic Root3.8 (2.0-3.7cm) LVDs3.8 (2.5-4.0cm)LA (MM) (1.9-4.0cm)Aortic Cusp Exc1.2 (1.5-2.0cm) EF (%) 40.0 (55-70%)Rt. Atrium3.9 (1.9-4.0cm)Asc. Aorta cm IVSd1.0 (0.7-1.1cm)RV (D) (1.8-2.4cm) PWd1.0 (0.7-1.1cm) Mitral Valve MitralMitral Stenosis E wave0.92m/sMV Mean GR.mmHg A wave1.13m/sMV Peak GR.mmHg E/A ratio0.82D MVAcm2 DECEL [id number] 1/2 Timems Aortic Valve Aortic ValveAortic Stenosis V11.00m/Victor Manuel Mean GR.11mmHg V22.49m/Victor Manuel Peak GR.25mmHg LVOT Diameter1.9 (1.8-2.4cm)Doppler AVA1.14cm2 Pulmonic Valve V21.38m/s Tricuspid Valve TR Velocity2.98m/s [id number] Conclusion MILD LVH AND MILD LV DIASTOLIC DYSFUNCTION LV SLIGHTLY DILATED MILD LV GLOBAL HYPOKINESIS LV EJECTION FRACTION IS 45% AND IS BORDERLINE REDUCED SLIGHTLY DILATED LA HEAVILYCALCIFIED AORTIC LEAFLETS PEAK GRADIENT ACROSS AORTIC VALVE IS 25 MM OF HG AND MEAN GRADIENT IS 11 MM OF HG AORTIC VALVE AREA IS 1.14 CM SQUARE IT IS MODERATE DEGREE AORTIC STENOSIS RVSP IS 44 MM OF HG MODERATE DEGREE PULMONARY HYPERTENSION NO EFFUSION NORMAL MV,TV AND PV
[2024-01-04 16:07] LABS: PSA Free 0.08 ng/mL
== END 2024-01-03 10:45 | disposition home or self-care (01) | DRG 811 ==
LOC: EDBD 23:47 → ER 23:47 → TELE 01-01 04:22 → TELE-CENTR 01-01 08:00
PROVIDERS: ADMIT Hospitalist; ATTEND Hospitalist
PROC: 30233N1 Transfusion of Nonautologous Red Blood Cells into Peripheral Vein, Percutaneous Approach (ICD-10-PCS; principal; 2024-01-01)
DX: D50.9 Iron deficiency anemia, unspecified (principal); I21.A1 Myocardial infarction type 2; K92.2 Gastrointestinal hemorrhage, unspecified; N17.9 Acute kidney failure, unspecified; E87.20 Acidosis, unspecified; N13.2 Hydronephrosis with renal and ureteral calculous obstruction; I24.89 Other forms of acute ischemic heart disease; D62 Acute posthemorrhagic anemia; K40.90 Unilateral inguinal hernia, without obstruction or gangrene, not specified as recurrent; I25.10 Atherosclerotic heart disease of native coronary artery without angina pectoris; N18.2 Chronic kidney disease, stage 2 (mild); I12.9 Hypertensive chronic kidney disease with stage 1 through stage 4 chronic kidney disease, or unspecified chronic kidney disease; K21.9 Gastro-esophageal reflux disease without esophagitis; Z95.5 Presence of coronary angioplasty implant and graft; Z91.199 Patient's noncompliance with other medical treatment and regimen due to unspecified reason; Z82.49 Family history of ischemic heart disease and other diseases of the circulatory system; Z80.0 Family history of malignant neoplasm of digestive organs; Z88.2 Allergy status to sulfonamides; Z91.013 Allergy to seafood; T45.525A Adverse effect of antithrombotic drugs, initial encounter; Y92.89 Other specified places as the place of occurrence of the external cause
CPT/HCPCS: 36415; 71046; 74176; 80048; 80053; 80076; 81001; 83540; 83550; 83605; 83615; 84154; 84484; 85025; 85045; 85610; 86850; 86880; 86900; 86901; 86920; 93005; 93306; 99291; G0378; J2470; J3480